=== PATIENT | female | born 1955 ===

== ENCOUNTER 2019-09-04 14:42 | Outpatient (CLI) | payer BC, SELFPAY ==
--- NOTE | 2019-09-04 14:49 | XR_ITS ---
WS: [id number] Chest 2 views, 09/04/2019 Clinical Data: COUGH Comparison: None. Findings: No nodules, masses or effusions are seen. The heart is normal. The pulmonary vascularity is not increased. No pneumonia or pneumothorax is seen. There are clips in right upper quadrant from a cholecystectomy. XR/XR chest 2V* [id number] Impression: Negative chest.
== END 2019-09-04 14:43 | disposition home or self-care (01) ==
PROVIDERS: PCP Family Medicine; Visit Provider Family Medicine
DX: R05 Cough (principal)
CPT/HCPCS: 71046

== ENCOUNTER → 2019-09-17 10:20 | Outpatient (BNVA) | payer BC, SELFPAY | PROVIDERS: PCP Family Medicine; Visit Provider Podiatrist Foot & Ankle Surgery | DX: M19.072 Primary osteoarthritis, left ankle and foot (principal); M19.071 Primary osteoarthritis, right ankle and foot | CPT/HCPCS: 73630 ==

== ENCOUNTER 2019-10-28 14:37 | Outpatient (CLI) | payer BC, SELFPAY | END 2019-10-28 14:38 | disposition home or self-care (01) | LOC: SPT 14:40 | PROVIDERS: PCP Family Medicine; Visit Provider Podiatrist Foot & Ankle Surgery | DX: Z46.89 Encounter for fitting and adjustment of other specified devices (principal); M19.071 Primary osteoarthritis, right ankle and foot; M19.072 Primary osteoarthritis, left ankle and foot | CPT/HCPCS: L3030 ==

== ENCOUNTER 2019-11-28 15:21 | Outpatient (CLI) | payer BC, SELFPAY ==
--- NOTE | 2019-11-28 15:49 | MM_ITS ---
WS: [id number] Bilateral screening digital mammogram, 11/28/2019 Clinical Data: SCREEN Comparison: 05/06/2018, 04/30/2017, 09/13/2012. Findings: The breast parenchymal pattern shows fat replacement. No spiculated masses or clustered calcification s are seen. There are no secondary signs of carcinoma. MM/[place] [id number] Impression: 1. Negative bilateral mammogram unchanged. 2. Recommend annual screening mammograms. BIRADS: 1-Negative FOLLOW UP: 1 Year Follow-up The CAD inventory checker was used.
== END 2019-11-28 15:22 | disposition home or self-care (01) ==
LOC: RADSHAW 15:23
PROVIDERS: PCP Family Medicine; Visit Provider Nurse Practitioner Family
DX: Z12.31 Encounter for screening mammogram for malignant neoplasm of breast (principal)
CPT/HCPCS: 77067

== ENCOUNTER → 2020-07-23 11:35 | Outpatient (BNVA) | payer OTHER, SELFPAY | PROVIDERS: PCP Family Medicine; Visit Provider Obstetrics & Gynecology | DX: D28.0 Benign neoplasm of vulva (principal) | CPT/HCPCS: 88305 ==

== ENCOUNTER → 2020-09-29 09:21 | Outpatient (BNVA) | payer MEDICARE, SELFPAY | PROVIDERS: PCP Family Medicine; Visit Provider Obstetrics & Gynecology | DX: N90.89 Other specified noninflammatory disorders of vulva and perineum (principal) | CPT/HCPCS: 87635 ==

== ENCOUNTER 2020-10-05 05:49 | Day surgery (SDC) | payer MEDICARE, SELFPAY ==
[2020-10-01 12:28] VITALS: BMI 25.5
--- NOTE | 2020-10-01 12:35 | ECG_ITS ---
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
--- NOTE | 2020-10-01 12:52 | ANES.PREANE2 ---
Pre-Anesthetic Assessment Pre-Anesthetic Assessment: Height/Weight: Height 1.63 m Weight 67.585 kg Preop Diagnosis: Papillary hidradenoma Proposed Procedure: Operation Date: 10/05/20 07:10 Proposed Procedures p excision of vulvar mass 43208 N90.89(Not Applicable) - Jeffery Jeffrey MD Familial anesthetic complications: Pulled IV out of her hand for one anesthetics, another time during her hysterectomy her IV blew intraop and she started coming to, and she has sever PONV Social: Social History: No alcohol and No tobacco Exam: Pre-Anes Outpt Exam: alert, oriented x 3, clear to auscultation bilaterally and regular rate & rhythm Airway: Cervical ROM: WNL MP: 4 Dentition: False and Other (implants) CV/HEM: CV/HEM: HTN Metabolic: Metabolic: DM and Hyperlipidemia Musc/skel: Musc/skel: OA/DJD Anesthetic Plan: ASA status: 2 Anesthesia: MAC Risk of > 500 ml blood loss (7ml/kg in children): No PFSH Anesthesia PFSH: Medical History Diabetes mellitus Hyperlipidemia Hypertension Surgical History History of dental surgery S/P laparoscopic assisted vaginal hysterectomy (LAVH) (~1990) LAVH/BSO for endometriosis. S/P laparoscopic cholecystectomy S/P tonsillectomy and adenoidectomy Family History Daughter Cancer Mother Diabetes Hypertension Hyperlipidemia Stroke Seizures Social History (Updated 10/01/20 @ 11:02 by Jeffery Jeffrey MD) Smoking and tobacco status: former smoker Quit status (tobacco): has quit using tobacco Year quit tobacco: 2004 Former quit date comment: Smoked for 32 years. Most 2 ppd. Alcohol intake: current Alcohol intake frequency: holidays/special occasions only Substance/Drug Use: never Household members: spouse Marital status: Current occupational status: retired Data Anesthesia Cardiac Studies: No Data to Display
[2020-10-01 13:34] LABS: Anion Gap 15.1 (5-19); Blood Urea Nitrogen 14 mg/dL (8-23); Calcium 8.8 mg/dL (8.5-10.5); Carbon Dioxide 21 mmol/L (22-29); Chloride 103 mmol/L (98-107); Glucose 285 mg/dL (65-115); Osmolality Calculated 291 mOsm/kg (285-295); Potassium 4.1 mmol/L (3.5-5.1); Sodium 135 mmol/L (136-145)
[2020-10-05 06:18] LABS: Glucose Point of Care 159 mg/dL (70-110)
[2020-10-05] MEDS: ketorolac 30 mg/mL INJ IVP (06:30)
[2020-10-05] MEDS: sodium chloride 0.9% 1,000 ML 30 ML IV (06:30)
--- NOTE | 2020-10-05 06:58 | W.PM.OPSUD ---
Surgery/Procedure H&P Update DATE OF PROCEDURE: October 05, 2020 DATE H&P PERFORMED: 10/01/20 H&P UPDATE INFORMATION: I have reviewed H&P completed within last 30 days, I have examined patient prior to procedure, No changes to prior documentation and H&P is in [facility] [place] on date indicated PREOP DIAGNOSIS: Papillary hidradenoma PLANNED PROCEDURE: Operation Date: 10/05/20 07:00 Proposed Procedures p excision of vulvar mass 16271 N90.89(Not Applicable) - Jeffery Jeffrey MD
--- NOTE | 2020-10-05 07:05 | P.ANESUD_ITS ---
Pre-Anesthetic Update Pre-Anesthetic Assessment: Date of Surgery/Procedure: 10/05/20 Preop Wendy gnosis: Papillary hidradenoma Proposed Procedure: Operation Date: 10/05/20 07:00 Proposed Procedures p excision of vulvar mass 70265 N90.89(Not Applicable) - Jeffery Jeffrey MD Any changes to Pre-Anesthetic Assessment?: No Last Intake: Intake Last Liquid Date 10/04/20 Last Liquid Time 18:00 Last Solid Date 10/04/20 Last Solid Time 18:00 Labs Last 48hrs: Laboratory Results - last 48 hr 10/05/20 06:13 POC Glucose 159 H Vitals: Pulse Rhythm 10/05/20 06:08 Pulse Strength 3+ Normal 10/05/20 06:08 Oxygen Delivery Me thod 10/05/20 06:08 Exam: Pre-Anes Outpt Exam: alert, oriented x 3, clear to auscultation bilater ally and regular rate & rhythm Cardiac Studies: No Data to Display
--- NOTE | 2020-10-05 07:30 | PC.NURSE ---
after performing vaginal betadine prep it was noted patient suffered a small tear at bottom of vaginal opening. Dr Wojciech morales.
--- NOTE | 2020-10-05 07:40 | PM.OP ---
Operative Report Date of procedure: October 05, 2020 Pre-op Diagnosis: Papillary hidradenoma Post-op Diagnosis: Papillary hidradenoma Procedure Done: Excision of benign vulvar mass-1.5 cm excised area, Intermediate (layered) closure. Specimens removed/disposition: Right labial mass Surgeon: Jeffery Jeffrey Collection Support Specialist: Virginie Anesthesia: General Estimated blood loss (mL): 10 IV fluids (mL): 500 Complications: None Findings: 1 cm diameter mass of the right labia at the 7 to 8 o'clock position Brief History: Patient is a 65-year-old female 2, para 2 who is postmenopausal. She presented to the office on 07/23/2020 with complaint of blood in her underwear. She had been evaluated by her PCP but was noted to be very painful at the time on exam with nothing found. Week she had been also noticing an odor and discharge. At my exam, she was found to have a firm 1 cm diameter rounded nodule of the right labia outside of the hymenal ring at a 7 o'clock position. There was central ulceration with papillary appearing tissue extending from within the ulcerated area. 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 Patient is now presenting for excision of of the mass. Procedure: Patient was taken to the operating room where general anesthesia was obtained. She had voided prior to coming to the operating room. She was prepped and draped in the usual sterile fashion dorsal supine position with legs in Tony style stirrups. Sequential compression boots have been placed prior to starting the case. Exam under anesthesia was performed. Patient had a 1 cm nodule within the right labia outside of the hymenal ring at the 7 to 8 o'clock position. There was central papillary growth from the mass. No other masses or abnormalities were noted of the labia or vagina. The area was infiltrated with 1% lidocaine with epinephrine. Using a knife, a 3 cm x 1.5 cm elliptical excision was made around the mass. This was taken down to the underlying fat tissue. The mass was then completely excised. Areas of bleeding were brought under control with electrocautery. A layered closure was performed. It was initially closed with 2-0 Vicryl suture in a mixture of simple running and locking fashion for control of areas of bleeding. A second layer was then closed over the top of that bringing the skin edges closer together. The skin was reapproximated using a simple running stitch of 3-0 Vicryl suture. Triple antibiotic was applied. Patient tolerated procedure well. Sponge and needle counts were correct. Drains: None Postoperative status: Patient was transferred to recovery room in satisfactory condition. Disposition: Discharged home. Follow-up appointment on 10/14/2020. Medications: Tramadol 50 mg, 1 to 2 tablets every 6 hours as needed for pain, #10, 0 refills May resume usual home medications.
[2020-10-05 07:44] VITALS: BP 137/66; PULSE 89; RESP 17; O2SAT 96
[2020-10-05 07:45] VITALS: BP 125/69; PULSE 89; RESP 14; O2SAT 96
[2020-10-05 07:50] VITALS: BP 129/66; PULSE 78; RESP 16; O2SAT 96
--- NOTE | 2020-10-05 07:50 | SUR.PHASEI ---
pt awake alert on ra taking ice chips.
[2020-10-05 07:55] VITALS: BP 130/67; PULSE 73; RESP 19; TEMP 36.3; O2SAT 98
[2020-10-05 08:02] VITALS: BP 138/56; PULSE 60; RESP 16; TEMP 36.5; O2SAT 99
[2020-10-05 08:18] VITALS: BP 144/66; PULSE 55; RESP 16; O2SAT 100
--- NOTE | 2020-10-05 13:41 | ANE.PACU2 ---
Inpatient post-anesthesia follow up: Airway intact: Yes Vital signs: Temperature 97.7 F Pulse Rate 55 Respiratory Rate 16 Blood Pressure 144/66 Pulse Oximetry 100 Oxygen Delivery Me thod Room Air Oxygen Flow Rate Fraction of Inspir ed Oxygen Hydration adequate: Yes Nausea and vomiting: No Pain level: 3 Mental status: Baseline
== END 2020-10-05 08:35 | disposition home or self-care (01) ==
PROVIDERS: PCP Family Medicine; Visit Provider Obstetrics & Gynecology
PROC: (CPT 11422; principal; 2020-10-05 07:00)
DX: D28.0 Benign neoplasm of vulva (principal); I10 Essential (primary) hypertension; E11.9 Type 2 diabetes mellitus without complications; E78.5 Hyperlipidemia, unspecified; M19.90 Unspecified osteoarthritis, unspecified site; Z87.891 Personal history of nicotine dependence
CPT/HCPCS: 11422; 12041; 36415; 36416; 80048; 82962; 88305; 93005; 96365; 96374; J0690; J1100; J1885; J2405; J2704; J2710; J3010; J3490; J7030

== ENCOUNTER → 2020-11-08 14:15 | Outpatient (BNVA) | payer MEDICARE, SELFPAY | PROVIDERS: PCP Family Medicine; Visit Provider Obstetrics & Gynecology | DX: N89.8 Other specified noninflammatory disorders of vagina (principal); B37.3 Candidiasis of vulva and vagina | CPT/HCPCS: 87210 ==

== ENCOUNTER 2021-04-18 10:49 | Outpatient (CLI) | payer MEDICARE, SELFPAY ==
--- NOTE | 2021-04-18 10:55 | MM_ITS ---
WS: [id number] BILATERAL SCREENING DIGITAL MAMMOGRAM WITH CAD HISTORY: SCREENING COMPARISON: 11/28/2019, 05/06/2018 Bilateral CC and MLO views submitted. Computer aided detection analyzed. Breast composition: There are scattered areas of fibroglandular density. No suspicious masses, microc alcifications or architectural distortion. Asymmetry in the anterior LEFT breast is stable over multi ple prior studies. Benign calcification RIGHT breast. MM/[place] [id number] IMPRESSION: BI-RADS: 2-Benign FOLLOW UP: 1 Year Follow-up
== END 2021-04-18 10:50 | disposition home or self-care (01) ==
LOC: RADSHAW 10:54
PROVIDERS: PCP Nurse Practitioner Family; Visit Provider Nurse Practitioner Family
DX: Z12.31 Encounter for screening mammogram for malignant neoplasm of breast (principal)
CPT/HCPCS: 77067

== ENCOUNTER 2021-09-01 11:14 | Observation (INO) | payer MEDICARE, SELFPAY ==
[2021-09-01] VITALS (8 sets, daily range): BP systolic 152–172; BP diastolic 67–85; PULSE 63–76; RESP 17–20; TEMP 36.4–36.7; O2SAT 94–100; BMI 26.5
--- NOTE | 2021-09-01 11:27 | XR_ITS ---
WS: [id number] Portable AP upright chest, 09/01/2021 Clinical Data: chest pain Comparison: PA and lateral chest, 09/04/2019 Findings: No nodules, masses or effusions are seen. The heart is normal. The pulmonary vascularity is not increased. No pneumonia or pneumothorax is seen. Monitor leads are on the chest wall. XR/XR chest 1V portable [id number] Impression: Negative chest.
--- NOTE | 2021-09-01 11:27 | ECG_ITS ---
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 Measurements Intervals [place] Rate: 71 P: 30 SD: 147 QRS: 88 QRSD: 95 T: 42 QT: 293 QTc: 318 Interpretive Statements SINUS RHYTHM LOW QRS VOLTAGE IN PRECORDIAL LEADS [QRS DEFLECTION < 1.0 mV IN CHEST LEADS] SEPTAL MYOCARDIAL INFARCTION , PROBABLY OLD [40+ ms Q WAVE IN V1/V2] Compared to ECG 10/01/2020 12:48:31 Low QRS voltage now present Myocardial infarct finding now present Short SD interval no longer present T-wave abnormality no longer present Electronically Signed On 09-02-2021 5:59:14 LEATHER COVERER by Gabriella Tyson M.D. [id number]
[2021-09-01] MEDS: aspirin 325 mg Tablet PO (11:31)
--- NOTE | 2021-09-01 11:40 | ED_ITS ---
HPI - General Adult General: Chief complaint: Chest Pain Stated complaint: cp Time Seen by Provider: 09/01/21 11:27 History of Present Illness: CC: Chest Pain HPI: This is a [65]yo patient hx of HTN, DM presenting to the ED w/ acute onset intermittent substernal chest pain x 3 days. Pain is a very typical prior presentation of cardiac chest pain. Has shortness of breath worse with exertion for the last 3 days. Pain is not tearing in nature and does not radiate to the back. Endorse nausea but has no associated with vomiting or decreased PO intake. Denies any recent sympathomimetic drug use. Patient denies any cough. Denies palpitations, syncope symptoms. Pain not positional. Norecent immobility, surgery, unilateral leg swelling, or prior PE. Patient denies any orthopnea, p aroxysmal nocturnal dyspnea, weight gain, or increased leg swellings. Onset: 3 days ago Duration: ongoing for the last 3 days Location: home Severity: moderate Associated symptoms: Reports chest pain and dyspnea; Deny nausea, rash, palpitations or vomiting Review of Systems Const: Denies: fever(s) or chills Eyes: Denies: change in vision ENMT: Denies: mouth pain Card: Reports: chest pain; Denies: palpitations Resp: Reports: dyspnea; Denies: non-productive cough GI: Denies: abdominal pain, nausea, vomiting or diarrhea : Denies: dysuria Musc: Denies: extremity pain Skin/Breast: Denies: rash or new lesions Neuro: Denies: weakness in extremities Psych: Reports: other (Normal mood) Deng/Lymph: Denies: easy bruising [facility] ED PFSH: Medical History Diabetes mellitus Hyperlipidemia Hypertension 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 Path: Hidradenoma papilliferum. Performed by Dr. Jeffrey at [facility] in [place], [place]. History of dental surgery S/P laparoscopic assisted vaginal hysterectomy (LAVH) (~1990) LAVH/BSO for endometriosis. S/P laparoscopic cholecystectomy S/P tonsillectomy and adenoidectomy Family History Daughter Cancer Mother Diabetes Hypertension Hyperlipidemia Stroke Seizures Social History Smoking and tobacco status: former smoker Quit status (tobacco): has quit using tobacco Year quit tobacco: 2004 Former quit date comment: Smoked for 32 years. Most 2 ppd. Alcohol intake: current Alcohol intake frequency: holidays/special occasions only Household members: spouse Marital status: Current occupational status: retired Physical Exam Const: COMMON NORMALS: alert HENMT: COMMON NORMALS: atraumatic HEAD & SCALP: atraumatic MOUTH: moist mucous membranes not abnormal Eye: COMMON NORMALS: EOMs intact bilaterally and conjunctivae normal CONJUNCTIVA: Yes conjunctivae normal Neck/C-Spine: COMMON NORMALS: full ROM and supple Resp: COMMON NORMALS: normal respiratory effort and clear to auscultation bilaterally AUSCULTATION: clear to auscultation bilaterally Cardio: COMMON NORMALS: regular rate RATE: regular rate OTHER: 2+ radial pulses b/l GI: COMMON NORMALS: Soft to palpation and non-tender PALPATION: Yes Soft to palpation Extremity: COMMON NORMALS: full ROM Neuro: SENSORIUM/ORIENTATION: Yes alert MOTOR EXAM: No Abnormal motor strength present and Other motor observations present (no focal motor deficits) Psych: COMMON NORMALS: speech normal SPEECH: Yes normal speech MOOD & AFFECT: Yes euthymic mood Course Vital Signs: Vital signs: Vital Signs Temperature 97.5 F L 09/01/21 11:19 Pulse Rate 71 09/01/21 11:19 Respiratory Rate 20 H 09/01/21 11:54 Blood Pressure 157/85 09/01/21 11:19 Pulse Oximetry 100 09/01/21 11:54 MDM - General Adult Medical Decision Making [65]yo patient w/ hx of HTN, DM presenting to the ED With acute substernal chest pain X 4 days with hx of similar prior pain. Currently 5/10 chest pain. Given History And Exam today I have moderate to high suspicion for ACS/UA/NSTEMI. Today, I have NO suspicion for pneumothorax, pneumonia, pulmonary embolus, tamponade, aortic dissection or other emergent problem as a cause for this presentation. ECG did not show any signs of acute STEMI. Workup: ECG x2, CXR, CBC, BMP, Troponin x 2 Intervention: ASA 325mg, SL nitroglycerin Findings: ECG: No overt evidence of STEMI, no hyperacute T waves, localizable STD or T wave inversions. No evidence of Brugada?s sign, delta wave, epsilon wave, significantly prolonged QTc, or malignant arrhythmia. No Q waves. Other Labs unremarkable for emergent problems. CXR: Without PTX, PNA, or widened mediastinum Dimer wnl [12:30pm] On reassessment, the patient is currently chest pain free. S/p aspirin 325mg. Pain improved with nitroglycerin. Heart score greater than 4, patient admitted to hospital for chest pain work-up. Disposition: Inpatient admission. Lab Data : 09/01/21 11:40 09/01/21 11:40 Radiology Impressions Chest X-Ray 09/01/21 11:27 Impression: Negative chest. Laboratory Results WBC 8.0 10^3/uL (4.0-10.0) 09/01/21 11:40 RBC 5.08 10^6/uL (4.1-5.3) 09/01/21 11:40 Hgb 14.2 g/dL (11.5-15.3) 09/01/21 11:40 Hct 42.5 % (37.0-47.0) 09/01/21 11:40 MCV 83.7 fl (81-99) 09/01/21 11:40 MCH 28.0 pg (28.0-34.0) 09/01/21 11:40 MCHC 33.4 g/dL (30.0-36.0) 09/01/21 11:40 RDW 12.4 % (12.1-15.1) 09/01/21 11:40 Plt Count 278 10^3/cmm (130-400) 09/01/21 11:40 MPV 9.9 fL (7.4-10.4) 09/01/21 11:40 Neut % (Auto) 63.7 % 09/01/21 11:40 Lymph % (Auto) 24.0 % 09/01/21 11:40 [place] % (Auto) 8.6 % 09/01/21 11:40 Eos % (Auto) 1.9 % 09/01/21 11:40 Baso % (Auto) 0.8 % 09/01/21 11:40 Neut # (Auto) 5.07 10^3/uL (1.8-7.7) 09/01/21 11:40 Lymph # (Auto) 1.9 10^3/uL (0.8-4.8) 09/01/21 11:40 [place] # (Auto) 0.7 10^3/uL (0.2-0.9) 09/01/21 11:40 Eos # (Auto) 0.2 10^3/uL (0.0-0.8) 09/01/21 11:40 Baso # (Auto) 0.1 10^3/uL (0.0-0.1) 09/01/21 11:40 Nucleated RBC % (auto) 0 % 09/01/21 11:40 Nucleated RBCs # 0.0 /100WBC 09/01/21 11:40 D-Dimer <= 0.27 ug/mIFEU (0-0.59) 09/01/21 13:45 Sodium 138 mmol/L (136-145) 09/01/21 11:40 Potassium 4.4 mmol/L (3.5-5.1) 09/01/21 11:40 Chloride 104 mmol/L (98-107) 09/01/21 11:40 Carbon Dioxide 22 mmol/L (22-29) 09/01/21 11:40 Anion Gap 16.4 (5-19) 09/01/21 11:40 BUN 11 mg/dL (8-23) 09/01/21 11:40 Creatinine 0.7 mg/dL (0.5-0.9) 09/01/21 11:40 GFR Calculation 84.0 mL/min (90-130) L 09/01/21 11:40 Glucose 134 mg/dL (65-115) H 09/01/21 11:40 Calculated Osmolality 287 mOsm/kg (285-295) 09/01/21 11:40 Calcium 9.7 mg/dL (8.5-10.5) 09/01/21 11:40 Troponin T Baseline 6 ng/L (0-10) 09/01/21 11:40 Troponin T 120 Minute 6.26 ng/L (0-10) 09/01/21 13:45 Delta Troponin T 0.26 ABS# (0-10) 09/01/21 13:45 Imaging Data Other Imaging: Radiologist's impression: Launch?Image Rudder [facility] [address] [place] [address] XRay Report Signed Patient: Rahel Espinoza Unit #: [id number] : 1955 Age/Sex: 65 / F ADM Date: 09/01/21 Loc: ER Room/Bed: Attending Dr: Ordering Provider/Ordering MD: Misti Llamas MD Date of Service: 09/01/21 Procedure(s): XR chest 1V portable [id number] Accession Number(s): [id number] Report Number: [id number] WS: [id number] Portable AP upright chest, 09/01/2021 Clinical Data: chest pain Comparison: PA and lateral chest, 09/04/2019 Findings: No nodules, masses or effusions are seen. The heart is normal. The pulmonary vascularity is not increased. No pneumonia or pneumothorax is seen. Monitor leads are on the chest wall. XR/XR chest 1V portable [id number] Impression: Negative chest. ? Dictated By: Latonia Helton MD Signed By: Latonia Helton MD Signed Date/Time: 09/01/211154 DD/ 54 Discharge Plan Discharge Patient Disposition: Admitted As Inpatient Clinical Impression: Chest pain Condition: Stable Coding Level of Care Code ED Automotive Product Engineer for Chg Fwd Exam Comprehensive
[2021-09-01 11:51] LABS: Basophils # 0.1 10^3/uL (0.0-0.1); Basophils % 0.8 %; Eosinophils # 0.2 10^3/uL (0.0-0.8); Eosinophils % 1.9 %; Hematocrit 42.5 % (37.0-47.0); Hemoglobin 14.2 g/dL (11.5-15.3); Lymphocytes # 1.9 10^3/uL (0.8-4.8); Mean Corpuscular HGB Conc 33.4 g/dL (30.0-36.0); Mean Corpuscular Volume 83.7 fl (81-99); Mean Platelet Volume 9.9 fL (7.4-10.4); Monocytes # 0.7 10^3/uL (0.2-0.9); Monocytes % 8.6 %; Neutrophils # 5.07 10^3/uL (1.8-7.7); Neutrophils % 63.7 %; Nucleated Red Blood Cells % 0 %; Platelet Count 278 10^3/cmm (130-400); Red Blood Count 5.08 10^6/uL (4.1-5.3); Red Cell Distribution Width 12.4 % (12.1-15.1)
[2021-09-01] MEDS: morphine 4 mg/mL SDV 1 mL IVP (11:54)
[2021-09-01 12:11] LABS: Troponin(5th) Baseline 6 ng/L (0-10)
[2021-09-01 12:12] LABS: Anion Gap 16.4 (5-19); Blood Urea Nitrogen 11 mg/dL (8-23); Calcium 9.7 mg/dL (8.5-10.5); Carbon Dioxide 22 mmol/L (22-29); Chloride 104 mmol/L (98-107); Glucose 134 mg/dL (65-115); Osmolality Calculated 287 mOsm/kg (285-295); Potassium 4.4 mmol/L (3.5-5.1); Sodium 138 mmol/L (136-145)
--- NOTE | 2021-09-01 12:17 | PC.PHAR ---
pt states she takes care of her own medications-pt states she is not taking montelukast 10mg rx filled 08/24/21 90d/s-notes are made in the pharmacy comments
--- NOTE | 2021-09-01 13:27 | ECG_ITS ---
[facility] Test Date: 2021-09-01 Pat Name: Rahel Espinoza Department: Room: Gender: Female Gut Dropper: : 1955 Requested By: Misti Llamas Order Number: [id number] Reading MD: Gabriella Tyson M.D. Measurements Intervals [place] Rate: 68 P: 42 UT: 140 QRS: 84 QRSD: 92 T: 90 QT: 404 QTc: 432 Interpretive Statements SINUS RHYTHM SEPTAL MYOCARDIAL INFARCTION , PROBABLY OLD [40+ ms Q WAVE IN V1/V2] Compared to ECG 09/01/2021 11:28:31 No significant changes Electronically Signed On 09-02-2021 6:06:25 MANAGEMENT SERVICES TECHNICIAN by Gabriella Tyson M.D. [id number]
[2021-09-01 14:10] LABS: D Dimer <= 0.27 ug/mIFEU (0-0.59)
--- NOTE | 2021-09-01 14:25 | CT_ITS ---
WS: [id number] CTA CHEST, ABDOMEN AND PELVIS. HISTORY: Left-sided chest pain with difficulty breathing. TECHNIQUE: CT angiogram is performed through the chest, abdomen and pelvis. Sagittal and coronal ref ormats have been submitted. MIP imaging also reviewed. All CT scans at [facility] use at leas t one of these dose optimization techniques: automated exposure control; mA and/or kV adjustment per patient size (includes targeted exams where dose is matched to clinical indication); or iterative rec onstruction. Contrast: Omnipaque 350; 95 cc IV. DLP: 1523.7 mGy.cm COMPARISON: None. Normal size thoracic aorta. No dissection or aneurysm. There is very mild atherosclerotic plaque and intimal thickening. Normal size pulmonary artery with no emboli. Heart size is normal with slight enl argement the LEFT heart chambers. There is minimal calcified plaque in the LEFT circumflex coronary a rtery. No pneumothorax or pleural effusion. Lungs are clear. There is mild diffuse esophageal thicken ing greatest in the mid and lower esophagus. Normal appearance of the great vessels as they arise fro m the aorta. Abdominal aorta is normal course and caliber. No dissection or aneurysm. Internal and external iliac arteries are normal caliber. Good contrast opacification of the celiac axis and SMA. Only partial opa cification of the SMV due to the phase of contrast injection. Normal renal arteries. Hepatic steatosis. Normal portal vein. Prior cholecystectomy. Normal size spleen and adrenal glands. Normal pancreas. No renal mass or obstruction. No ascites or free air. Diffuse constipation. Greatest retained fecal material in the cecum and dista l colon. Numerous diverticula. Normal appendix. Facet joint arthritis in the lower lumbar spine. CT/CT angio chest abdomen pelvis IMPRESSION: 1. No thoracic or abdominal aortic aneurysm or dissection. 2. Very minimal atherosclerotic disease within the thoracic and abdominal aort as. 3. No pneumothorax or pleural effusion. 4. No pulmonary embolism. 5. Mild mid to lower circumferential thickening of the esophagus. Correlate fo r gastroesophageal reflux disease and esophagitis. 6. Diffuse moderate constipation with sigmoid diverticulosis. No acute diverti culitis. 7. Hepatic steatosis. 8. Prior cholecystectomy and hysterectomy.
[2021-09-01 14:33] LABS: Troponin 5 2HR 6.26 ng/L (0-10)
--- NOTE | 2021-09-01 14:45 | PM.HP ---
Providers/Chief Complaint Primary Care Provider: Fabby Miguel Chief Complaint: cp History of Present Illness Rahel Espinoza is a 65 year old female with a past medical history of noninsulin-dependent type 2 diabetes mellitus, hypertension, who presents to [facility] due to severe substernal chest pain radiating to the back. Patient tells me that for the last few days, she has noticed severe chest pain, radiating to the back. It is almost like someone is punching her in the sternum, and is going straight to her back, and she has severe tearing back pain. Pain does not improve with sitting up, does not improve with laying down. She tells me that over the last few days pain has become much more severe, much more prolonged. Some associate shortness of breath. No diaphoresis. No lightheadedness. No dizziness. No nausea. No vomiting. Denies any heavy lifting. Denies any back spasms. Does have some left shoulder pain. Denies any cardiovascular history. No history of stress testing. No history of CVA. Does have a history of hypertension. In the emergency room her first troponin was 6, D-dimer 0.27, EKG no acute ST-T wave changes. Given her severe substernal chest pain rating to the back, I will order a CT angiogram of the chest to evaluate for possible aortic dissection. So far she is received aspirin, morphine Review of Systems Const: Denies: fever(s), chills, fatigue or malaise Eyes: Denies: change in vision or blurry vision ENMT: Denies: nasal congestion Resp: Denies: dyspnea, productive cough, non-productive cough or wheezing GI: Denies: abdominal pain, nausea, vomiting, hematemesis, diarrhea, constipation, hematochezia or melena : Denies: flank pain, dysuria or urinary frequency Musc: Reports: back pain Skin/Breast: Denies: rash Neuro: Denies: headache(s), dizziness or vertigo Psych: Denies: anxiety Endo: Denies: polyuria or polydipsia Medications/Allergies Home Medications Medication Instructions Recorded Confirmed Last Taken Type lisinopril 10 mg tablet 10 mg PO BEDTIME tab 10/01/20 09/01/21 08/31/21 History trazodone 50 mg tablet 100 mg PO BEDTIME tab 10/01/20 09/01/21 08/31/21 History aspirin 325 mg tablet 325 mg PO BEDTIME 09/01/21 09/01/21 08/31/21 History azelastine 137 mcg (0.1 %) nasal 1 spray INTRANASAL BID 09/01/21 09/01/21 Unknown History spray aerosol epinephrine 0.3 mg/0.3 mL See Rx Instructions .ROUTE .COMPLEX 09/01/21 09/01/21 Unknown History injection, auto-injector fluticasone propionate 50 1 spray INTRANASAL BID 09/01/21 09/01/21 Unknown History mcg/actuation nasal spray,suspension levocetirizine 5 mg tablet 5 mg PO BEDTIME 09/01/21 09/01/21 08/31/21 History multivitamin with minerals 2 tab PO DAILY 09/01/21 09/01/21 Unknown History (Hair,Skin and Nails) semaglutide 7 mg tablet (Rybelsus) 7 mg PO QAM 09/01/21 09/01/21 09/01/21 History Allergies Allergy/AdvReac Type Severity Reaction Status Date / Time Penicillins Allergy Unknown unknown Verified 09/01/21 12:16 Fpumzww-ENS-FeY Reductase Allergy Unknown Unknown Verified 09/01/21 12:16 Inhibitor [Ogedmti-Drp-Xlu Reductase Inhibitor] PFSH Acute PFSH: Medical History Diabetes mellitus Hyperlipidemia Hypertension 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 Path: Hidradenoma papilliferum. Performed by Dr. Jeffrey at [facility] in [place], [place]. History of dental surgery S/P laparoscopic assisted vaginal hysterectomy (LAVH) (~1990) LAVH/BSO for endometriosis. S/P laparoscopic cholecystectomy S/P tonsillectomy and adenoidectomy Family History Daughter Cancer Mother Diabetes Hypertension Hyperlipidemia Stroke Seizures Social History Smoking and tobacco status: former smoker Quit status (tobacco): has quit using tobacco Year quit tobacco: 2004 Former quit date comment: Smoked for 32 years. Most 2 ppd. Alcohol intake: current Alcohol intake frequency: holidays/special occasions only Household members: spouse Marital status: Current occupational status: retired Vitals/I&O/Wt Last Vital Signs Temp 97.5 F L 09/01/21 11:19 Pulse 71 09/01/21 11:19 Resp 20 H 09/01/21 11:54 BP 157/85 09/01/21 11:19 Pulse Ox 100 09/01/21 11:54 Weight last 48 hrs Weight 68.039 kg Physical Exam Const: COMMON NORMALS: no acute distress and patient oriented x3 GENERAL APPEARANCE: cooperative, well kempt and well developed HENMT: COMMON NORMALS: normocephalic and Normal external nose present HEAD & SCALP: normocephalic Eye: COMMON NORMALS: Equal, round and reactive pupils present, EOMs intact bilaterally and conjunctivae normal PUPIL: Yes Equal, round and reactive pupils present Neck/C-Spine: COMMON NORMALS: full ROM, no lymphadenopathy, no meningeal signs, Thyroid normal and No carotid bruits THYROID: Thyroid normal Lymph: LYMPHATIC: no lymphadenopathy noted Chest: COMMONS NORMALS: normal inspection of the chest Resp: COMMON NORMALS: normal respiratory effort, No retractions, No use of accessory muscles and clear to auscultation bilaterally AUSCULTATION: clear to auscultation bilaterally Cardio: COMMON NORMALS: no JVD, regular rate, regular rhythm, S1 normal heart sound present, S2 normal heart sound present, No murmurs present (Cardio) and Peripheral pulses 2+ throughout RATE: regular rate RHYTHM: regular rhythm HEART SOUNDS: S1 normal heart sound present and S2 normal heart sound present PERIPHERAL PULSES: Peripheral pulses 2+ throughout GI: COMMON NORMALS: Normal to inspection, nondistended, normoactive bowel sounds present, Soft to palpation, non-tender and No hepatosplenomegaly present PALPATION: Yes Soft to palpation and Yes No hepatosplenomegaly present Back/Pelvis: COMMON NORMALS: no CVA tenderness THORACIC SPINE/UPPER BACK: Yes normal to inspection, Yes thoracic ROM normal, No pain with ROM and Yes paraspinal muscle tenderness Extremity: COMMON NORMALS: normal to inspection, full ROM, capillary refill normal, no calf tenderness and no pedal edema Neuro: COMMON NORMALS: patient oriented x3, CN's II-XII intact bilaterally, moves all extremities, no focal motor deficits and no sensory deficits noted Psych: COMMON NORMALS: mental status grossly normal, Normal thought process present, cooperative and speech normal APPEARANCE: Yes well kempt SPEECH: Yes normal speech THOUGHT PROCESS: Normal thought process present Skin: COMMON NORMALS: turgor normal and no jaundice GENERAL SKIN EXAM: turgor normal Data : 09/01/21 11:40 09/01/21 11:40 A&P Assessment and plan (1) Chest pain: Status: Acute (2) Hypertension: Status: Acute (3) Diabetes mellitus: Status: Acute (4) Hyperlipidemia: Status: Acute Plan Chest pain -Substernal chest pain, radiating to the back, -Has a history of hypertension, diabetes - plan -CT angiogram of the chest has been ordered to evaluate for possible aortic dissection, if positive will need to transferred for higher level care, need to start on beta-jazlyn -For now she continues to have chest pain -If CT angiogram negative -We will start on nitroglycerin drip -Coreg 3.125 twice daily -Aspirin, statin -Cardiac echocardiogram -Current n.p.o. 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
[2021-09-01 14:51] LABS: Troponin 5 2HR Delta 0.26 ABS# (0-10)
[2021-09-01] MEDS: iohexol 350 mg/mL 100 mL Btl IV (14:58)
--- NOTE | 2021-09-01 15:57 | PC.NURSE ---
[facility]
--- NOTE | 2021-09-01 16:04 | USCV_ITS ---
Rahel Espinoza Age: 65 Gender: F : 1955 Exam Date: 09/01/2021 16:30 Ordering Phys: Kirit Alcantar MD Technologist: MATTHEW Exam Location: [facility] Indication: chest pain BP: 124 / 68 HR: 61 Rhythm: Sinus Technical Quality: Adequate MEASUREMENTS (Male / Female) Normal Values 2D ECHO LV Diastolic Diameter PLAX 3.8 cm 4.2 - 5.9 / 3.9 - 5.3 cm LV Systolic Diameter PLAX 2.5 cm IVS Diastolic Thickness 1.1 cm 0.6 - 1.0 / 0.6 - 0.9 cm IVS Systolic Thickness 1.5 cm LVPW Diastolic Thickness 1.5 cm 0.6 - 1.0 / 0.6 - 0.9 cm LVPW Systolic Thickness 1.8 cm LVOT Diameter 2.0 cm LV Ejection Fraction 2D Teich 62.4 % LV Ejection Fraction MOD 2C 69.6 % LV Ejection Fraction 2C AL 69.3 % LA Diameter 3.3 cm LA Width 3.4 cm LA Height 4.3 cm RA Width 2.9 cm RA Height 4.1 cm Aorta at Sinotubular Diameter 2.5 cm M-MODE Aortic Annulus Diameter 3.1 cm LA Ao Ratio MM 1.1 MV E Point Septal Separation 0.5 cm DOPPLER AV Peak Velocity 99.0 cm/s LVOT Peak Velocity 74.0 cm/s AV Area Cont Eq vti 2.5 cm squared AV Area Cont Eq pk 2.3 cm squared MV Area PHT 4.8 cm squared Mitral E to A Ratio 0.9 MV E' Velocity 74.0 cm/s Mitral E to LV E' Septal Ratio 10.5 TR Peak Velocity 293.4 cm/s TR Peak Gradient 34.4 mmHg TR Mean Velocity 226.1 cm/s TR Mean Gradient 21.9 mmHg TR Velocity Time Integral 79.1 cm Right Atrial Pressure 3.0 mmHg Pulmonary Artery Systolic Pressu 37.4 mmHg RV Acceleration Time 0.1 s RV Ejection Time 0.4 s RV AcT/ET 0.4 FINDINGS Left Ventricle Normal left ventricular size. LV systolic function is normal with EF of 55-60%. No regional wall motion abnormalities are seen. Grade 1 diastolic dysfunction. Right Ventricle The right ventricle is normal in size and function. Right Atrium The right atrium is normal in size. Left Atrium The left atrium is normal in size. Mitral Valve Structurally normal mitral valve without significant stenosis or prolapse. There is trace mitral regurgitation. Aortic Valve Grossly normal. No significant stenosis or aortic regurgitation seen. Tricuspid Valve Structurally normal tricuspid valve without significant stenosis. Trace tricuspid regurgitation. Insufficient TR jet to calculate RVSP. Pulmonic Valve Not well-visualized Pericardium Normal pericardium without effusion. Aorta Normal ascending aorta dimension. CONCLUSIONS LV systolic function is normal with EF 55 to 60%. Grade 1 diastolic dysfunction. Trace mitral regurgitation. Trace tricuspid regurgitation. No comparison studies are available. Raj Hernandez MD (Electronically Signed) Final Date: 02 September 2021 11:35 S
--- NOTE | 2021-09-01 16:04 | ECG_ITS ---
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 Interpretive Statements NAME OF STUDY: LEXISCAN SESTAMIBI STRESS TEST INDICATION: [Chest Pain, ] Procedure: At the baseline, the blood pressure was 115/62 mmHg with a heart rate of 68 bpm. The electrocardiogram showed normal sinus rhythm, normal axis with normal ST and T's. The Lexiscan was infused over a period of 20 seconds. A total of 0.4 mg of Lexiscan was infused. The stress phase was continued for a total of 5 minutes. Heart rate was at the end of stress phase was 89 bpm and a blood pressure of 118/69 mmHg. The EKG at the peak infusion revealed since normal sinus rhythm with no significant ST-T wave changes. Sestamibi was injected 20 seconds after the Lexiscan infusion. Blood pressure at the end of recovery phase was 106 /62 mmHg with a heart rate of 89 bpm. Conclusion: 1. Normal EKG response to Lexiscan infusion 2. No Lexiscan induced chest pain or cardiac arrhythmia. 3. Normal blood pressure and heart rate response. 4. Sestamibi/sestamibi perfusion scan pending; see separate report. Electronically Signed On 10-01-2021 12:46:47 CDT by Raj Hernandez M.D. [id number]
[2021-09-01 16:21] LABS: Erythrocyte Sedimentation Rate 5 mm/hr (0-15)
[2021-09-01 16:31] LABS: Chol HDL Ratio 4.34 mg/dL (0.0-4.40); Cholesterol 230 mg/dL (0-200); HDL Cholesterol 53 mg/dL (60-100); LDL Cholesterol Calculated 129 mg/dL (50-129); LDL HDL Ratio 2.43 RATIO (0.00-3.22); NT Pro B Type Natriuretic Pept 127 pg/mL (0-125); Triglycerides 241 mg/dL (0-150)
[2021-09-01 16:36] LABS: Glucose Point of Care 75 mg/dL (70-110)
[2021-09-01 16:50] LABS: Amphetamines Screen Urine Negative (Negative); Barbiturates Screen Urine Negative (Negative); Benzodiazepines Screen Urine Negative (Negative); Cocaine Screen Urine Negative (Negative); Opiate Screen Urine Positive (Negative); PCP Screen Urine Negative (Negative); THC Screen Urine Negative (Negative)
--- NOTE | 2021-09-01 17:27 | ECG_ITS ---
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 Measurements Intervals Moodus Rate: 67 P: -4 [place]: 133 QRS: 38 QRSD: 109 T: 5 QT: 424 QTc: 449 Interpretive Statements SINUS RHYTHM NONSPECIFIC ST & T-WAVE ABNORMALITY Compared to ECG 09/01/2021 13:26:01 T-wave abnormality now present Myocardial infarct finding no longer present Electronically Signed On 09-02-2021 6:05:03 YOUTH SPECIALIST by Gabriella Tyson M.D. [id number]
[2021-09-01] MEDS: carvedilol 3.125 mg Tablet PO (17:30)
[2021-09-01] MEDS: fluticasone nasal spray 16gm Btl 1 SPRAY INTRANASAL (17:30)
[2021-09-01 17:31] LABS: Estmated Average Glucose 177; Hemoglobin A1C 7.8 % (4.0-6.0)
[2021-09-01 18:08] LABS: Troponin 5 6HR 6.96 ng/L (0-10)
[2021-09-01 18:18] LABS: Thyroid Stimulating Hormone 1.22 uIU/mL (0.27-4.20)
[2021-09-01 18:28] LABS: Troponin 5 6HR Delta 0.96 ng/L (0-12)
--- NOTE | 2021-09-01 18:55 | PC.NURSE ---
Report to Breonna Chowdhury LPN at this time.
[2021-09-01] MEDS: enoxaparin 40 mg/0.4 mL Syringe SUBCUT (20:08)
[2021-09-01] MEDS: trazodone 50 mg Tablet 100 MG PO (20:09)
[2021-09-01] MEDS: lisinopril 10 mg Tablet PO (20:09)
[2021-09-01 21:15] LABS: Glucose Point of Care 130 mg/dL (70-110)
[2021-09-02] VITALS: BP 152/74; PULSE 70; RESP 17; O2SAT 92
[2021-09-02 02:23] LABS: Alanine Aminotransferase 17 U/L (0-33); Albumin Level 3.8 g/dL (3.5-5.2); Alkaline Phosphatase 78 IU/L (35-105); Anion Gap 13.3 (5-19); Aspartate Amino Transferase 13 U/L (0-32); Blood Urea Nitrogen 11 mg/dL (8-23); Calcium 9.6 mg/dL (8.5-10.5); Carbon Dioxide 24 mmol/L (22-29); Chloride 105 mmol/L (98-107); Globulin 2.2 g/dL (1.3-4.6); Glucose 173 mg/dL (65-115); Magnesium 2.1 mg/dL (1.7-2.3); Osmolality Calculated 290 mOsm/kg (285-295); Phosphorus 3.7 mg/dL (2.5-4.5); Potassium 4.3 mmol/L (3.5-5.1); Sodium 138 mmol/L (136-145); Total Bilirubin 0.2 mg/dL (0.15-1.2)
[2021-09-02 04:00] VITALS: BP 125/79; PULSE 67; RESP 17; TEMP 36.6; O2SAT 98
[2021-09-02 06:28] LABS: Glucose Point of Care 130 mg/dL (70-110)
[2021-09-02] MEDS: regadenoson 0.4 Mg/5 ml Syringe IVP (07:34)
[2021-09-02] MEDS: ondansetron 2 mg/ML SDV 2 mL 4 MG IVP (07:40)
[2021-09-02 07:47] VITALS: BP 132/73; PULSE 89
[2021-09-02 08:00] VITALS: BP 113/65; PULSE 80; RESP 22; TEMP 36.7; O2SAT 92
--- NOTE | 2021-09-02 08:45 | PC.NURSE ---
Patient returned to room at this time.
--- NOTE | 2021-09-02 09:57 | PC.CHAP ---
Pastoral Care Encounter/Spiritual Assessment Type of Contact [] Declined station supervisor visit [] Patient/Family/Request visit [] Outpatient visit [] Follow-up visit [] Physician referral [] Code/Alert [x] Routine visit [] Staff referral [] Actively dying [x] Patient sleeping [] Family support [] [] Out of room [] Palliative care [] [] Receiving care in room [] Pre-surgical visit [] Trauma [] Long length of stay [] ICU visit [] Other: Relational/Emotional Strength [] Patient feels connected with others/family/visitors/staff [] Distress [] Loneliness/isolation [] Abandonment Spirituality of Patient [] Person of Jeanie [] Attends Zoroastrianism of their Jeanie [] Believes in Prayer [] Reads Bible or Restoration materials [] There are Spiritual issues to be addressed Hand Flesher Interventions [] Prayer [] Active listening [] Non-anxious presence [] Spiritual/emotional support [] Crisis/trauma care [] Spiritual counseling [] Bereavement support [] Provided bereavement packet [] Provided Bible/devotional materials [] Provided toy/stuffed animal, coloring book to patient or family member [] Provided Communion [] Anointing/[place] [] Salvation [] Completed spiritual assessment [] Other: Impact on Illness or Injury [] Angry [] Fearful [] Anxious [] Often cries [] Exhaustion [] Unable to work [] Unable to attend gnosticist [] Unable to walk/stand [] Unable to read [] Unable to drive [] Unable to eat/drink [] Unable to sleep [] Unable to be with family [] Patient intubated [] Other: Summary Time spent with patient
[2021-09-02] MEDS: baclofen 10 mg Tablet PO (10:34)
[2021-09-02] MEDS: fluticasone nasal spray 16gm Btl 1 SPRAY INTRANASAL (10:34)
[2021-09-02] MEDS: carvedilol 3.125 mg Tablet PO (10:34)
[2021-09-02] MEDS: aspirin 325 mg Tablet PO (10:34)
[2021-09-02] MEDS: pantoprazole DR 40 mg Tablet PO (10:34)
[2021-09-02 11:13] VITALS: BP 166/80; PULSE 74; RESP 20; TEMP 36.6; O2SAT 98
--- NOTE | 2021-09-02 11:30 | PM.DCS ---
Discharge Providers Date of Admission: 09/01/21 14:15 Date of Discharge: September 02, 2021 Attending Provider at Admission: Kirit Alcantra MD Attending Provider at Discharge: Kirit Alcantar MD Primary Care Provider: Fabby Miguel Diagnoses at Discharge Discharge Diagnosis (1) Chest pain: Status: Acute (2) Hypertension: Status: Acute (3) Diabetes mellitus: Status: Acute (4) Hyperlipidemia: Status: Acute Reason for Visit Reason for Visit: cp Hospital Course Hospital Course This is a 65-year-old female with a past medical history of hypertension, diabetes, hyperlipidemia who presents [facility] for chest pain For her chest pain, no significant delta troponin, no acute ST-T wave changes, CT of the chest was negative for aortic dissection or pulmonary emboli, underwent cardiac stress testing which was low probability of obstructive CAD. Discharged on blood pressure control lisinopril 10 twice daily, Coreg 3.125 twice daily. Follow-up with primary provider in 1 week. If she were to have recurrent chest pain go to the emergency room Physical Exam Const: COMMON NORMALS: no acute distress and patient oriented x3 Resp: COMMON NORMALS: normal respiratory effort, No retractions, No use of accessory muscles and clear to auscultation bilaterally AUSCULTATION: clear to auscultation bilaterally Cardio: COMMON NORMALS: regular rate, regular rhythm, S1 normal heart sound present and S2 normal heart sound present RATE: regular rate RHYTHM: regular rhythm HEART SOUNDS: S1 normal heart sound present and S2 normal heart sound present GI: COMMON NORMALS: Normal to inspection, nondistended, normoactive bowel sounds present, Soft to palpation and non-tender PALPATION: Yes Soft to palpation Extremity: COMMON NORMALS: no pedal edema Neuro: COMMON NORMALS: patient oriented x3 Psych: COMMON NORMALS: mental status grossly normal Discharge Data Studies Completed and Pending Completed Studies During Hospitalization Category Date Time Status CTA chest abdomen pelvis [CT angio chest abdomen pelvis Cat Scan 09/01/21 14:25 Completed ] Urgent Sestamibi Stress Test Request Routine Exams 09/01/21 16:04 Draft XR chest 1V portable [id number] Urgent Exams 09/01/21 11:27 Completed NM fareed perf SPECT r/s* [id number] Routine Nuc Med 09/02/21 16:04 Completed Pending at discharge Category Date Time Status Comprehensive Metabolic Panel AM LABS Lab 09/03/21 04:00 Ordered Comprehensive Metabolic Panel AM LABS Lab 09/04/21 04:00 Ordered Magnesium AM LABS Lab 09/03/21 04:00 Ordered Magnesium AM LABS Lab 09/04/21 04:00 Ordered Phosphorus AM LABS Lab 09/03/21 04:00 Ordered Phosphorus AM LABS Lab 09/04/21 04:00 Ordered CV. echo complete* [id number] Routine Ultrasound 09/01/21 16:04 Taken Radiology Impressions Chest X-Ray 09/01/21 11:27 Impression: Negative chest. Chest/Abdomen/Pelvis CTA 09/01/21 14:25 IMPRESSION: 1. No thoracic or abdominal aortic aneurysm or dissection. 2. Very minimal atherosclerotic disease within the thoracic and abdominal aortas. 3. No pneumothorax or pleural effusion. 4. No pulmonary embolism. 5. Mild mid to lower circumferential thickening of the esophagus. Correlate for gastroesophageal reflux disease and esophagitis. 6. Diffuse moderate constipation with sigmoid diverticulosis. No acute diverticulitis. 7. Hepatic steatosis. 8. Prior cholecystectomy and hysterectomy. Laboratory Results WBC 8.0 10^3/uL (4.0-10.0) 09/01/21 11:40 RBC 5.08 10^6/uL (4.1-5.3) 09/01/21 11:40 Hgb 14.2 g/dL (11.5-15.3) 09/01/21 11:40 Hct 42.5 % (37.0-47.0) 09/01/21 11:40 MCV 83.7 fl (81-99) 09/01/21 11:40 MCH 28.0 pg (28.0-34.0) 09/01/21 11:40 MCHC 33.4 g/dL (30.0-36.0) 09/01/21 11:40 RDW 12.4 % (12.1-15.1) 09/01/21 11:40 Plt Count 278 10^3/cmm (130-400) 09/01/21 11:40 MPV 9.9 fL (7.4-10.4) 09/01/21 11:40 Neut % (Auto) 63.7 % 09/01/21 11:40 Lymph % (Auto) 24.0 % 09/01/21 11:40 Starke % (Auto) 8.6 % 09/01/21 11:40 Eos % (Auto) 1.9 % 09/01/21 11:40 Baso % (Auto) 0.8 % 09/01/21 11:40 Neut # (Auto) 5.07 10^3/uL (1.8-7.7) 09/01/21 11:40 Lymph # (Auto) 1.9 10^3/uL (0.8-4.8) 09/01/21 11:40 Starke # (Auto) 0.7 10^3/uL (0.2-0.9) 09/01/21 11:40 Eos # (Auto) 0.2 10^3/uL (0.0-0.8) 09/01/21 11:40 Baso # (Auto) 0.1 10^3/uL (0.0-0.1) 09/01/21 11:40 Nucleated RBC % (auto) 0 % 09/01/21 11:40 Nucleated RBCs # 0.0 /100WBC 09/01/21 11:40 ESR 5 mm/hr (0-15) 09/01/21 11:40 D-Dimer <= 0.27 ug/mIFEU (0-0.59) 09/01/21 13:45 Sodium 138 mmol/L (136-145) 09/02/21 01:19 Potassium 4.3 mmol/L (3.5-5.1) 09/02/21 01:19 Chloride 105 mmol/L (98-107) 09/02/21 01:19 Carbon Dioxide 24 mmol/L (22-29) 09/02/21 01:19 Anion Gap 13.3 (5-19) 09/02/21 01:19 BUN 11 mg/dL (8-23) 09/02/21 01:19 Creatinine 0.7 mg/dL (0.5-0.9) 09/02/21 01:19 GFR Calculation 84.0 mL/min (90-130) L 09/02/21 01:19 Glucose 173 mg/dL (65-115) H 09/02/21 01:19 POC Glucose 130 mg/dL (70-110) H 09/02/21 06:21 Estimat Average Glucose 177 09/01/21 11:40 Hemoglobin A1c 7.8 % (4.0-6.0) H 09/01/21 11:40 Calculated Osmolality 290 mOsm/kg (285-295) 09/02/21 01:19 Calcium 9.6 mg/dL (8.5-10.5) 09/02/21 01:19 Phosphorus 3.7 mg/dL (2.5-4.5) 09/02/21 01:19 Magnesium 2.1 mg/dL (1.7-2.3) 09/02/21 01:19 Total Bilirubin 0.2 mg/dL (0.15-1.2) 09/02/21 01:19 AST 13 U/L (0-32) 09/02/21 01:19 ALT 17 U/L (0-33) 09/02/21 01:19 Alkaline Phosphatase 78 IU/L (35-105) 09/02/21 01:19 Troponin T Baseline 6 ng/L (0-10) 09/01/21 11:40 Troponin T 120 Minute 6.26 ng/L (0-10) 09/01/21 13:45 Delta Troponin T 0.26 ABS# (0-10) 09/01/21 13:45 Troponin T Hi Sens 6Hr 6.96 ng/L (0-10) 09/01/21 17:28 Troponin T Hi Sens 6Hr Delta 0.96 ng/L (0-12) 09/01/21 17:28 NT-Pro-B Natriuret Pep 127 pg/mL (0-125) H 09/01/21 11:40 Total Protein 6.0 g/dL (6.6-8.7) L 09/02/21 01:19 Albumin 3.8 g/dL (3.5-5.2) 09/02/21 01:19 Globulin 2.2 g/dL (1.3-4.6) 09/02/21 01:19 Triglycerides 241 mg/dL (0-150) H 09/01/21 11:40 Cholesterol 230 mg/dL (0-200) H 09/01/21 11:40 LDL Cholesterol, Calc 129 mg/dL (50-129) 09/01/21 11:40 HDL Cholesterol 53 mg/dL (60-100) L 09/01/21 11:40 LDL/HDL Ratio 2.43 RATIO (0.00-3.22) 09/01/21 11:40 Cholesterol/HDL Ratio 4.34 mg/dL (0.0-4.40) 09/01/21 11:40 TSH 1.22 uIU/mL (0.27-4.20) 09/01/21 11:40 Urine Opiates Screen Positive ng/mL (Negative) H 09/01/21 16:17 Ur Barbiturates Screen Negative ng/mL (Negative) 09/01/21 16:17 Ur Phencyclidine Scrn Negative ng/mL (Negative) 09/01/21 16:17 Ur Amphetamines Screen Negative ng/mL (Negative) 09/01/21 16:17 U Benzodiazepines Scrn Negative ng/mL (Negative) 09/01/21 16:17 Urine Cocaine Screen Negative ng/mL (Negative) 09/01/21 16:17 U Marijuana (THC) Screen Negative ng/mL (Negative) 09/01/21 16:17 Vitals Last Vital Signs Temp 97.8 F 09/02/21 11:13 Pulse 74 09/02/21 11:13 Resp 20 H 09/02/21 11:13 BP 166/80 09/02/21 11:13 Pulse Ox 98 09/02/21 11:13 Discharge Plan Discharge Patient Disposition: Home Condition: Stable Prescriptions: New tramadol 50 mg Tablet 50 mg PO Q8H PRN (Reason: Moderate Pain) 7 Days Qty: 21 0RF nitroglycerin 0.4 mg Tablet, Sublingual 0.4 mg sublingual Q5M PRN (Reason: Chest Pain) 30 Days Qty: 30 0RF cyclobenzaprine 10 mg Tablet 5 mg PO TID PRN (Reason: Muscle Spasms) 7 Days Qty: 21 0RF carvedilol 3.125 mg Tablet 3.125 mg PO BID 30 Days Qty: 60 0RF Continued trazodone 50 mg tablet 100 mg PO BEDTIME 0RF aspirin 325 mg Tablet 325 mg PO BEDTIME 0RF azelastine 137 mcg (0.1 %) aerosol,spray 1 spray INTRANASAL BID 0RF Rx Instructions: use with flonase epinephrine 0.3 mg/0.3 mL auto-injector See Rx Instructions .ROUTE .COMPLEX 0RF Rx Instructions: use as directed prn Hair,Skin and Nails Tablet 2 tab PO DAILY 0RF fluticasone propionate 50 mcg/actuation spray,suspension 1 spray INTRANASAL BID 0RF levocetirizine 5 mg tablet 5 mg PO BEDTIME 0RF Rybelsus 7 mg tablet 7 mg PO QAM 0RF Changed lisinopril 10 mg tablet 10 mg PO Q12H Qty: 0 0RF Discharge Orders: Discharge Order (Routine); Ordered 09/02/21 Ordered By: Kirit Alcantar Referrals: Fabby Miguel, CLINICAL RESEARCH ANALYST [Primary Care Provider] - Discharge Diet: Cardiac Discharge Activity: Resume usual activity Patient Instructions: Opioid Safety Activity Restrictions/Additional Instructions: -For chest pain if you recurrent chest pain please go to the emergency room -For muscle spasm take Flexeril, tramadol as needed for muscle spasms, do not drive or operate heavy machinery or drink alcohol while taking these medications -Please follow-up with primary care provider in 1 week -For elevated blood pressure increase lisinopril to 10 twice a day -I added Coreg 3.125 twice daily Discharge Attestations Time Spent in Discharge Care*: less than 30 min Quality Metrics Clinical Quality Measures [ No reported AMI, CVA or VTE this stay] Coding Level of Care Code Acute g [facility] note Diagnoses Chest pain R07.9 Hypertension I10 Diabetes mellitus E11.9 Hyperlipidemia E78.5
[2021-09-02 12:04] LABS: Glucose Point of Care 188 mg/dL (70-110)
[2021-09-02] MEDS: cyclobenzaprine 10 mg Tablet 5 MG PO (12:16)
[2021-09-02] MEDS: TRAMadol 50 mg Tablet PO (12:16)
--- NOTE | 2021-09-02 13:28 | PC.NURSE ---
1326 dc instructions given and PIV removed. Pt verbalizes understanding of all instructions. Pt dressed and wheeled out to waiting private vehicle.
--- NOTE | 2021-09-02 16:04 | NMCV_ITS ---
NM fareed perf SPECT r/s* [id number] Rahel Espinoza Age: 65 Gender: F : 1955 Exam Date: 09/02/2021 16:04 Ordering Phys: Kirit Alcantar MD Technologist: REGINA Alan Exam Location: [facility] Indications: CHEST PAIN STRESS TEST Please see separate stress test report in [facility] for full findings IMAGE PROTOCOL Rest/Stress 1 Lexiscan Day Radiopharmaceutical Dose (mCi) Administration Site Administered by Rest: Tc-99m 10.8 IV REGINA Phelps Sestamibi Stress:Tc-99m 32.7 IV REGINA Phelps Sestamibi Rest: 02-Sep-2021 60 Discovery 630 Stress: 02-Sep-2021 30 Discovery 630 0.4mg Lexiscan. Images obtained in supine and prone position. SPECT RESULTS Technical Quality: Excellent Raw Data Analysis: Normal Image Corrections: No attenuation or motion correction applied Summed Stress Score: 0 Summed Rest Score: 0 Summed Difference Score: 0 PERFUSION FINDINGS SPECT images demonstrate homogeneous tracer distribution throughout the myocardium. FUNCTIONAL RESULTS (calculated via Gated SPECT) Stress Image LV EF (%): 75 Stress EDV (mL):69 TID: 1.05 Stress ESV (mL):17 FUNCTIONAL FINDINGS: There is normal left ventricular systolic function. IMPRESSIONS 1. Normal myocardial perfusion imaging with no evidence of ischemia 2. LV systolic function is normal Raj Hernandez MD (Electronically Signed) Final Date: 02 September 2021 09:41 S
== END 2021-09-02 13:26 | disposition home or self-care (01) ==
LOC: ER 14:58 → MEDSURG 15:26
PROVIDERS: Admitting Provider Family Medicine; Emergency Provider Emergency Medicine; PCP Nurse Practitioner Family; Visit Provider Family Medicine
DX: R07.9 Chest pain, unspecified (principal); I10 Essential (primary) hypertension; E11.9 Type 2 diabetes mellitus without complications; E78.5 Hyperlipidemia, unspecified; Z79.82 Long term (current) use of aspirin; Z87.891 Personal history of nicotine dependence; Z82.49 Family history of ischemic heart disease and other diseases of the circulatory system; Z83.3 Family history of diabetes mellitus
CPT/HCPCS: 36415; 36416; 71045; 71275; 74174; 78452; 80048; 80053; 80061; 80306; 82962; 83036; 83735; 83880; 84100; 84443; 84484; 85025; 85378; 85651; 93005; 93017; 93306; 96365; 96372; 96375; 99285; A9500; G0378; J1650; J2270; J2405; J2785; Q9967

== ENCOUNTER 2021-09-09 10:18 | Outpatient (CLI) | payer MEDICARE, SELFPAY ==
--- NOTE | 2021-09-09 10:34 | XR_ITS ---
WS: [id number] XR cervical spine 3V* [id number] REASON FOR EXAM: MUSCULOSKELETAL CHEST PAIN FINDINGS: Mild left lateral curvature of the cervical spine on the AP view. Mild straightening of the normal lo rdosis on the lateral view. No vertebral compression deformity or other focal vertebral body abnormality is noted. The intervertebral disc spaces are relatively well-preserved. No significant spondylolisthesis. XR/XR cervical spine 3V* [id number] IMPRESSION: No significant abnormality for age.
--- NOTE | 2021-09-09 10:35 | XR_ITS ---
WS: [email or web address] XR thoracic spine 2V [id number] REASON FOR EXAM: MUSCULOSKELETAL CHEST PAIN FINDINGS: Normal thoracic spine alignment on the AP and lateral views. Intervertebral disc space narrowing with anterior osteophyte formation in the lower thoracic spine. T his is most prominent at T8-T12. There are chronic appearing mild biconcave compression deformities of T8-T12. No definite acute verte bral body abnormality. XR/XR thoracic spine 2V [id number] IMPRESSION: Degenerative changes with no focal acute abnormality.
== END 2021-09-09 10:19 | disposition home or self-care (01) ==
PROVIDERS: PCP Nurse Practitioner Family; Visit Provider Nurse Practitioner Family
DX: R07.89 Other chest pain (principal); M54.2 Cervicalgia; M25.512 Pain in left shoulder
CPT/HCPCS: 72040; 72070

== ENCOUNTER → 2021-10-25 08:49 | Outpatient (BNVA) | payer MEDICARE, SELFPAY | PROVIDERS: PCP Nurse Practitioner Family; Referring Provider Nurse Practitioner Family; Visit Provider Podiatrist Foot & Ankle Surgery | DX: M21.371 Foot drop, right foot (principal); M21.372 Foot drop, left foot; M19.079 Primary osteoarthritis, unspecified ankle and foot; E11.9 Type 2 diabetes mellitus without complications; Z87.891 Personal history of nicotine dependence | CPT/HCPCS: 99213; 99214 ==

== ENCOUNTER 2022-02-13 10:53 | Outpatient (CLI) | payer MEDICARE, SELFPAY ==
--- NOTE | 2022-02-13 11:38 | XRR_ITS ---
PROCEDURE INFORMATION: Exam: XR Right Shoulder Exam date and time: 02/13/2022 11:41 AM Age: 66 years old Clinical indication: Pain; Shoulder; Right; Additional info: Pain in right shoulder TECHNIQUE: Imaging protocol: Radiologic exam of the Right shoulder. Views: 2 or more views. 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 No acute fracture nor subluxation. No osseous erosion nor periosteal reaction. Soft tissues: Normal. XR/XR shoulder RT min 2V* [id number] IMPRESSION: 1. 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 2. No acute osseous pathology.
== END 2022-02-13 10:54 | disposition home or self-care (01) ==
PROVIDERS: PCP Nurse Practitioner Family; Visit Provider Nurse Practitioner Family
DX: M25.511 Pain in right shoulder (principal)
CPT/HCPCS: 73030

== ENCOUNTER → 2022-02-22 12:39 | Outpatient (BNVA) | payer MEDICARE, SELFPAY | PROVIDERS: PCP Nurse Practitioner Family; Referring Provider Nurse Practitioner Family; Visit Provider Orthopaedic Surgery | DX: M75.31 Calcific tendinitis of right shoulder (principal); M75.01 Adhesive capsulitis of right shoulder | CPT/HCPCS: 20610; 99203; J0702; J3490 ==

== ENCOUNTER 2022-03-06 11:17 | Outpatient (RCR) | payer MEDICARE, SELFPAY | END 2022-03-24 23:59 | disposition home or self-care (01) | LOC: SPT 11:17 | PROVIDERS: PCP Nurse Practitioner Family; Visit Provider Orthopaedic Surgery | DX: M77.8 Other enthesopathies, not elsewhere classified (principal); M25.511 Pain in right shoulder | CPT/HCPCS: 97110; 97161 ==

== ENCOUNTER → 2022-03-28 12:41 | Outpatient (BNVA) | payer MEDICARE, SELFPAY | PROVIDERS: PCP Nurse Practitioner Family; Visit Provider Orthopaedic Surgery | DX: M75.31 Calcific tendinitis of right shoulder (principal); M75.01 Adhesive capsulitis of right shoulder | CPT/HCPCS: 99212 ==

== ENCOUNTER → 2022-05-02 10:26 | Outpatient (BNVA) | payer MEDICARE, SELFPAY | PROVIDERS: PCP Nurse Practitioner Family; Visit Provider Podiatrist Foot & Ankle Surgery | DX: E11.8 Type 2 diabetes mellitus with unspecified complications (principal); M21.371 Foot drop, right foot; M21.372 Foot drop, left foot; M19.072 Primary osteoarthritis, left ankle and foot; E11.9 Type 2 diabetes mellitus without complications; R26.9 Unspecified abnormalities of gait and mobility | CPT/HCPCS: 99214 ==

== ENCOUNTER 2022-05-10 06:00 | Outpatient (RCR) | payer MEDICARE, SELFPAY | END 2022-05-24 23:59 | disposition home or self-care (01) | LOC: SPT 06:00 | PROVIDERS: PCP Nurse Practitioner Family; Visit Provider Podiatrist Foot & Ankle Surgery | DX: M21.379 Foot drop, unspecified foot (principal) | CPT/HCPCS: 97161 ==

== ENCOUNTER 2022-05-25 06:00 | Outpatient (RCR) | payer MEDICARE, SELFPAY | END 2022-06-24 23:59 | disposition home or self-care (01) | LOC: SPT 06:00 | PROVIDERS: PCP Nurse Practitioner Family; Visit Provider Podiatrist Foot & Ankle Surgery | DX: M21.372 Foot drop, left foot (principal); M21.371 Foot drop, right foot | CPT/HCPCS: 97110 ==

== ENCOUNTER 2022-06-25 06:00 | Outpatient (RCR) | payer MEDICARE, SELFPAY | END 2022-06-28 23:59 | disposition home or self-care (01) | LOC: SPT 06:00 | PROVIDERS: PCP Nurse Practitioner Family; Visit Provider Podiatrist Foot & Ankle Surgery | DX: M21.371 Foot drop, right foot (principal); M21.372 Foot drop, left foot | CPT/HCPCS: 97110 ==

== ENCOUNTER → 2022-08-07 13:45 | Outpatient (BNVA) | payer MEDICARE, SELFPAY | PROVIDERS: PCP Nurse Practitioner Family; Visit Provider Podiatrist Foot & Ankle Surgery | DX: M96.0 Pseudarthrosis after fusion or arthrodesis (principal); M21.371 Foot drop, right foot; M21.372 Foot drop, left foot; D49.2 Neoplasm of unspecified behavior of bone, soft tissue, and skin; E11.8 Type 2 diabetes mellitus with unspecified complications; R26.9 Unspecified abnormalities of gait and mobility | CPT/HCPCS: 80053; 82550; 83036; 85025; 85651; 86036; 86140; 86160; 86162; 86235; 86255; 86376; 86431; 86812; 99214 ==

== ENCOUNTER → 2022-09-18 12:43 | Outpatient (BNVA) | payer MEDICARE, SELFPAY | PROVIDERS: PCP Nurse Practitioner Family; Visit Provider Podiatrist Foot & Ankle Surgery | DX: M21.371 Foot drop, right foot (principal); M21.372 Foot drop, left foot; M19.072 Primary osteoarthritis, left ankle and foot; E11.9 Type 2 diabetes mellitus without complications; R26.9 Unspecified abnormalities of gait and mobility | CPT/HCPCS: 99213 ==

== ENCOUNTER → 2022-10-09 09:03 | Outpatient (BNVA) | payer MEDICARE, SELFPAY | PROVIDERS: PCP Nurse Practitioner Family; Visit Provider Internal Medicine Rheumatology | DX: M05.79 Rheumatoid arthritis with rheumatoid factor of multiple sites without organ or systems involvement (principal); M62.81 Muscle weakness (generalized); Z79.899 Other long term (current) drug therapy; M19.90 Unspecified osteoarthritis, unspecified site; Z11.59 Encounter for screening for other viral diseases; Z71.85 Encounter for immunization safety counseling; R76.8 Other specified abnormal immunological findings in serum; G62.9 Polyneuropathy, unspecified; Z87.39 Personal history of other diseases of the musculoskeletal system and connective tissue; Z11.1 Encounter for screening for respiratory tuberculosis | CPT/HCPCS: 36415; 71046; 73130; 73630; 82040; 82085; 82310; 82550; 83735; 84100; 84132; 86480; 86704; 86803; 87340; 99205 ==

== ENCOUNTER 2022-11-08 11:05 | Outpatient (CLI) | payer MEDICARE, SELFPAY ==
[2022-11-08 12:06] LABS: Basophils # 0.1 10^3/uL (0.0-0.1); Basophils % 0.8 %; Eosinophils # 0.2 10^3/uL (0.0-0.8); Eosinophils % 3.4 %; Hematocrit 40.4 % (37.0-47.0); Lymphocytes # 1.5 10^3/uL (0.8-4.8); Lymphocytes % 22.5 %; Mean Corpuscular HGB Conc 32.2 g/dL (30.0-36.0); Mean Corpuscular Hemoglobin 27.8 pg (28.0-34.0); Mean Corpuscular Volume 86.3 fl (81-99); Mean Platelet Volume 9.9 fL (7.4-10.4); Monocytes # 0.6 10^3/uL (0.2-0.9); Monocytes % 9.6 %; Neutrophils # 4.11 10^3/uL (1.8-7.7); Neutrophils % 63.4 %; Nucleated Red Blood Cells % 0 %; Platelet Count 252 10^3/cmm (130-400); Red Blood Count 4.68 10^6/uL (4.1-5.3); Red Cell Distribution Width 13.4 % (12.1-15.1); White Blood Count 6.5 10^3/uL (4.0-10.0)
[2022-11-08 12:39] LABS: Alanine Aminotransferase 11 U/L (0-33); Alkaline Phosphatase 86 U/L (35-105); Aspartate Amino Transferase 9 U/L (0-32); C Reactive Protein 10.4 mg/L (0.0-4.9); Globulin 2.8 g/dL (1.3-4.6); Glomerular Filtration Rate 83.5 mL/min (90-130); Total Bilirubin 0.3 mg/dL (0.15-1.2); Total Protein 6.8 g/dL (6.6-8.7)
== END 2022-11-08 11:06 | disposition home or self-care (01) ==
PROVIDERS: PCP Nurse Practitioner Family; Visit Provider Internal Medicine Rheumatology
DX: M19.90 Unspecified osteoarthritis, unspecified site (principal); Z79.899 Other long term (current) drug therapy
CPT/HCPCS: 80076; 82565; 85025; 86140

== ENCOUNTER → 2022-11-09 09:22 | Outpatient (BNVA) | payer MEDICARE, SELFPAY | PROVIDERS: PCP Nurse Practitioner Family; Visit Provider Psychiatry & Neurology Neurology | DX: G25.0 Essential tremor (principal); M62.830 Muscle spasm of back; M54.6 Pain in thoracic spine; Z87.39 Personal history of other diseases of the musculoskeletal system and connective tissue; E11.9 Type 2 diabetes mellitus without complications; E78.5 Hyperlipidemia, unspecified; I10 Essential (primary) hypertension | CPT/HCPCS: 99203 ==

== ENCOUNTER 2022-11-30 07:39 | Outpatient (CLI) | payer MEDICARE, SELFPAY ==
--- NOTE | 2022-11-30 08:00 | MR_ITS ---
WS: [id number] MRI BRAIN WITH AND WITHOUT CONTRAST HISTORY: R25.1 - Tremor, unspecified COMPARISON: None available. TECHNIQUE: Multiplanar imaging performed through the brain with MultiHance 14 ml's IV. No acute infarcts are seen. An-white matter differentiation is well preserved. On the FLAIR and T2 sequences there are patchy areas of increased signal particularly in the periventricular distribution and greatest involving the RIGHT occipital horn. No signal abnormalities in the vito or the cerebell um. Prior lacunar infarct RIGHT frontal lobe adjacent to the frontal horn lateral ventricle. Ventricles and extra-axial spaces are normal. Clivus and pituitary gland are normal. Visualized posterior fossa and brainstem are also normal. No enhancing masses. On the postcontrast imaging there is a paucity of vessels in the RIGHT MCA ar tory. The proximal M1 segment marked paucity of vessels and very small caliber MCA. Similar findings but to a lesser extent on the LEFT. Dural venous sinuses are normal. Paranasal sinuses: Well aerated with no significant disease. Mastoid air cells: Normal. Calvarium and scalp: Normal. MR/MR head wo/w con [id number] IMPRESSION: 1. No acute infarct or enhancing mass. 2. Patchy areas of increased T2 signal predominantly in the periventricular wh ite matter from small vessel ischemic disease. Small lacunar infarct RIGHT fron nereida lobe adjacent to the lateral ventricle. 3. Narrowing of the middle cerebral arteries bilaterally, much greater on the RIGHT. Luminal narrowing noted in the proximal M1 segments. Paucity of vessels most significant in the distal RIGHT middle cerebral artery territory.
--- NOTE | 2022-11-30 08:45 | MR_ITS ---
WS: [email or web address] MRI CERVICAL SPINE with and without contrast. HISTORY: G25.0 - Essential tremor COMPARISON: None available. Technique: Multiplanar, multisequence noncontrast imaging of the cervical spine. Postcontrast MRI C-s pine, MultiHance 14 mL IV. Normal cervical alignment with no compression fracture or significant disc space narrowing. Signal within the cervical cord is normal. Visualized posterior fossa is unremarkable. Craniocervical junction, C1 and C2 relationship, odontoid process and soft tissues are normal. C2-C3: Normal. C3-C4: Very tiny central disc protrusion. No stenosis. C4-C5: Mild annular disc bulge with a tiny central disc protrusion and mild facet arthritis. Increase fluid in the LEFT facet joint. C5-C6: Mild disc bulging and osteophytic ridging. Small central disc protrusion. Mild bilateral annie inal narrowing. C6-C7: Mild osteophytic ridging. Facet disease encroaches upon the posterior thecal sac but does not contact the thecal sac. Very mild foraminal narrowing. C7-T1: Tiny central disc protrusion. No stenosis. Paravertebral soft tissues are negative. There is no discitis or osteomyelitis. No epidural abscess. No enhancement within the cord. MR/MR cervical spine wo/w [id number] IMPRESSION: 1. No significant central or foraminal stenosis throughout the cervical spine. 2. No discitis or osteomyelitis or abnormal enhancement in the cervical spine. 3. Mild facet joint arthritis and spondylitic changes.
--- NOTE | 2022-11-30 09:30 | MR_ITS ---
WS: [email or web address] MRI THORACIC SPINE with and without contrast HISTORY: G25.0 - Essential tremor COMPARISON: None available. TECHNIQUE: Multiplanar sequences are performed in sagittal and axial planes. Post contrast imaging, M ultiHance 14 mL IV. Mild increase in cervical lordosis and thoracic kyphosis. Posterior alignment is normal. Mild disc sp diana narrowing and desiccation throughout the thoracic spine. Schmorl's nodes defects in the mid thora cic spine. No signal abnormality within the thoracic cord. Conus tapers normally ends at L1. T1-2: No disc herniations or stenosis. Lobulated nerve root sleeve diverticulum on the LEFT. T2-3: Normal. T3-4: Normal. T4-5: Very mild foraminal narrowing. T5-6: Normal. T6-7: Normal. T7-8: Small bilateral nerve root sleeve diverticulum. No stenosis. Mild facet arthritis. T8-9: Normal. T9-10: Mild facet arthritis. T10-11: Mild annular disc bulging with moderate facet joint arthritis encroaching upon the posterior lateral thecal sac. Moderate size LEFT nerve root sleeve diverticulum. Very mild central with mild t o moderate foraminal stenosis. T11-12: Bilateral nerve root sleeve diverticulum and mild facet arthritis. No evidence for discitis or osteomyelitis. No abnormal enhancement within the thoracic cord. No fluid collections. MR/MR thoracic spine wo/w [id number] IMPRESSION: 1. No discitis or osteomyelitis. 2. No high-grade central or foraminal thoracic stenosis. 3. Multilevel nerve root sleeve diverticula. 4. Mild to moderate foraminal stenosis and mild central stenosis at T10-11 due to disc bulging and facet disease.
[2022-11-30] MEDS: gadobenate dimeglumine 20 mL vial IV (10:30)
== END 2022-11-30 07:40 | disposition home or self-care (01) ==
PROVIDERS: PCP Nurse Practitioner Family; Visit Provider Psychiatry & Neurology Neurology
DX: M47.812 Spondylosis without myelopathy or radiculopathy, cervical region (principal); M48.04 Spinal stenosis, thoracic region; G25.0 Essential tremor; M54.6 Pain in thoracic spine; M62.830 Muscle spasm of back; Z87.39 Personal history of other diseases of the musculoskeletal system and connective tissue; R25.1 Tremor, unspecified
CPT/HCPCS: 70553; 72156; 72157; A9577

== ENCOUNTER → 2022-12-20 10:02 | Outpatient (BNVA) | payer MEDICARE, SELFPAY | PROVIDERS: PCP Nurse Practitioner Family; Visit Provider Internal Medicine Rheumatology | DX: M05.79 Rheumatoid arthritis with rheumatoid factor of multiple sites without organ or systems involvement (principal); Z79.899 Other long term (current) drug therapy; Z71.85 Encounter for immunization safety counseling; R76.8 Other specified abnormal immunological findings in serum; G62.9 Polyneuropathy, unspecified; Z87.39 Personal history of other diseases of the musculoskeletal system and connective tissue | CPT/HCPCS: 99214 ==

== ENCOUNTER → 2023-01-03 14:13 | Outpatient (BNVA) | payer MEDICARE, SELFPAY | PROVIDERS: PCP Nurse Practitioner Family; Visit Provider Psychiatry & Neurology Neurology | DX: R25.1 Tremor, unspecified (principal); I66.03 Occlusion and stenosis of bilateral middle cerebral arteries; I10 Essential (primary) hypertension; M50.30 Other cervical disc degeneration, unspecified cervical region; M51.34 Other intervertebral disc degeneration, thoracic region; E11.9 Type 2 diabetes mellitus without complications; M06.9 Rheumatoid arthritis, unspecified; E78.5 Hyperlipidemia, unspecified | CPT/HCPCS: 99212 ==

== ENCOUNTER 2023-01-18 08:47 | Outpatient (CLI) | payer MEDICARE, SELFPAY ==
[2023-01-18 09:19] LABS: Basophils % 0.5 %; Eosinophils # 0.2 10^3/uL (0.0-0.8); Eosinophils % 2.4 %; Hematocrit 40.6 % (37.0-47.0); Hemoglobin 12.8 g/dL (11.5-15.3); Lymphocytes # 1.5 10^3/uL (0.8-4.8); Lymphocytes % 20.1 %; Mean Corpuscular HGB Conc 31.5 g/dL (30.0-36.0); Mean Corpuscular Hemoglobin 27.5 pg (28.0-34.0); Mean Corpuscular Volume 87.3 fl (81-99); Mean Platelet Volume 9.6 fL (7.4-10.4); Monocytes # 0.3 10^3/uL (0.2-0.9); Monocytes % 3.7 %; Neutrophils # 5.55 10^3/uL (1.8-7.7); Neutrophils % 72.9 %; Nucleated Red Blood Cells % 0 %; Platelet Count 261 10^3/cmm (130-400); Red Blood Count 4.65 10^6/uL (4.1-5.3); Red Cell Distribution Width 13.8 % (12.1-15.1); White Blood Count 7.6 10^3/uL (4.0-10.0)
[2023-01-18 09:43] LABS: Alanine Aminotransferase 22 U/L (0-33); Albumin Level 3.8 g/dL (3.5-5.2); Alkaline Phosphatase 83 U/L (35-105); Aspartate Amino Transferase 15 U/L (0-32); C Reactive Protein 7.1 mg/L (0.0-4.9); Globulin 2.5 g/dL (1.3-4.6); Glomerular Filtration Rate 71.5 mL/min (90-130); Total Bilirubin 0.3 mg/dL (0.15-1.2); Total Protein 6.3 g/dL (6.6-8.7)
== END 2023-01-18 08:48 | disposition home or self-care (01) ==
PROVIDERS: PCP Nurse Practitioner Family; Visit Provider Internal Medicine Rheumatology
DX: M05.79 Rheumatoid arthritis with rheumatoid factor of multiple sites without organ or systems involvement (principal); Z79.899 Other long term (current) drug therapy
CPT/HCPCS: 36415; 80076; 82565; 85025; 86140

== ENCOUNTER 2023-01-25 07:35 | Outpatient (CLI) | payer MEDICARE, SELFPAY ==
--- NOTE | 2023-01-25 08:00 | CT_ITS ---
WS: [email or web address] CT ANGIOGRAM CEREBRAL AND CAROTID ARTERIES HISTORY: G25.0 - Essential tremor TECHNIQUE: CT angiogram is performed of the carotid and cerebral arteries. During arterial injection imaging is obtained from the skull vertex to the aortic arch in 1.25 mm imaging. Coronal and sagittal reformats are submitted. Additional multi planar reformats of the carotid and cerebral arteries are submitted, MIP imaging also reviewed. NASCET criteria utilized. [facility] at least one of these dose optimization techniques: automated exposure control; mA and/or kV adjust ment per patient size (includes targeted exams where dose is matched to clinical indication); or iter ative reconstruction. CONTRAST: Omnipaque 350; 100 mL IV. DLP: 1197.17 mGy.cm COMPARISON: None available. Noncontrast head CT demonstrates no areas of hemorrhage or mass effect. No significant atrophy. Mild small vessel ischemic disease. Carotid Angiogram: Right carotid: Common carotid artery: Arises normally from the innominate artery. No significant plaque or stenosis. Internal carotid artery: No plaque or stenosis. External carotid artery: Patent. Left carotid: Common carotid artery: Bovine arch. No stenosis. Internal carotid artery: No plaque or stenosis. External carotid artery: Patent. Right vertebral artery: Unremarkable. Left vertebral artery: Very slightly dominant. No stenosis. Subclavian arteries: No stenosis or significant abnormality. Upper thorax: Normal. Thyroid gland: Normal. Osseous structures: Unremarkable. CEREBRAL ANGIOGRAM: Intracranial vertebral arteries: Mildly dominant LEFT vertebral artery. Both vertebral arteries are p atent. Basilar artery: No significant stenosis or occlusion. No aneurysm. Intracranial Internal carotid arteries: No high-grade stenosis. There is a small amount of plaque not ed bilaterally through the cavernous sinuses. Middle cerebral arteries: RIGHT middle cerebral artery is smaller caliber than the LEFT as seen on th e recent MRI of the brain. There is no irregularity or wall thickening. This is probably normal for t his patient. No aneurysms are identified. M1 and M2 segments appear normal caliber otherwise. No bead ing. No thrombosis. Anterior cerebral arteries and ACOM: Normal. Posterior cerebral arteries and PCOM's: Normal. Dural venous sinuses are normally enhancing. Mastoid air cells: Normal. Paranasal sinuses: Normal. Calvarium: Normal. CT/CT angio headneck* [id number] IMPRESSION: 1. No cervical carotid artery stenosis or significant atherosclerotic disease. 2. Mild atherosclerotic plaque in the cavernous portions of the carotid arteri es. No stenosis. 3. Very mild narrowing of the RIGHT MCA as compared to the LEFT as also seen o n the prior MRI. The artery is otherwise normal. Suspect this is normal variati on for this patient. There is no arterial beading, thrombosis or evidence for v asculitis. 4. No cerebral aneurysms.
[2023-01-25] MEDS: iohexol 350 mg/mL 500 mL Btl (per mL) IV (08:07)
== END 2023-01-25 07:36 | disposition home or self-care (01) ==
PROVIDERS: PCP Nurse Practitioner Family; Visit Provider Psychiatry & Neurology Neurology
DX: G25.0 Essential tremor (principal); Z87.39 Personal history of other diseases of the musculoskeletal system and connective tissue
CPT/HCPCS: 70496; 70498; Q9967

== ENCOUNTER → 2023-03-08 10:11 | Outpatient (BNVA) | payer MEDICARE, SELFPAY | PROVIDERS: PCP Nurse Practitioner Family; Visit Provider Internal Medicine Rheumatology | DX: Z79.899 Other long term (current) drug therapy (principal); M05.79 Rheumatoid arthritis with rheumatoid factor of multiple sites without organ or systems involvement; Z71.85 Encounter for immunization safety counseling; R76.8 Other specified abnormal immunological findings in serum; G62.9 Polyneuropathy, unspecified; Z87.39 Personal history of other diseases of the musculoskeletal system and connective tissue | CPT/HCPCS: 99214 ==

== ENCOUNTER → 2023-03-19 13:33 | Outpatient (BNVA) | payer MEDICARE, SELFPAY | PROVIDERS: PCP Nurse Practitioner Family; Visit Provider Podiatrist Foot & Ankle Surgery | DX: M21.371 Foot drop, right foot; M21.372 Foot drop, left foot; E11.9 Type 2 diabetes mellitus without complications; R26.9 Unspecified abnormalities of gait and mobility; M19.072 Primary osteoarthritis, left ankle and foot; M19.071 Primary osteoarthritis, right ankle and foot | CPT/HCPCS: 99213 ==

== ENCOUNTER → 2023-03-20 14:27 | Outpatient (BNVA) | payer MEDICARE, SELFPAY | PROVIDERS: PCP Nurse Practitioner Family; Visit Provider Psychiatry & Neurology Neurology | DX: G25.0 Essential tremor (principal) | CPT/HCPCS: 99212 ==

== ENCOUNTER → 2023-05-31 09:15 | Outpatient (BNVA) | payer MEDICARE, SELFPAY | PROVIDERS: PCP Nurse Practitioner Family; Visit Provider Podiatrist Foot & Ankle Surgery | DX: L60.3 Nail dystrophy (principal); L60.0 Ingrowing nail | CPT/HCPCS: 11750 ==

== ENCOUNTER → 2023-06-21 10:25 | Outpatient (BNVA) | payer MEDICARE, SELFPAY | PROVIDERS: PCP Nurse Practitioner Family; Visit Provider Podiatrist Foot & Ankle Surgery | DX: L60.0 Ingrowing nail (principal) | CPT/HCPCS: 99213 ==

== ENCOUNTER → 2023-07-05 11:21 | Outpatient (BNVA) | payer MEDICARE, SELFPAY | PROVIDERS: PCP Nurse Practitioner Family; Visit Provider Internal Medicine Rheumatology | DX: Z79.899 Other long term (current) drug therapy (principal); M05.79 Rheumatoid arthritis with rheumatoid factor of multiple sites without organ or systems involvement; Z71.85 Encounter for immunization safety counseling; R76.8 Other specified abnormal immunological findings in serum; G62.89 Other specified polyneuropathies; Z87.39 Personal history of other diseases of the musculoskeletal system and connective tissue | CPT/HCPCS: 36415; 80076; 82565; 85025; 86140; 99214 ==

== ENCOUNTER → 2023-07-12 10:21 | Outpatient (BNVA) | payer MEDICARE, SELFPAY | PROVIDERS: PCP Nurse Practitioner Family; Visit Provider Podiatrist Foot & Ankle Surgery | DX: L60.0 Ingrowing nail (principal) | CPT/HCPCS: 99213 ==

== ENCOUNTER → 2023-08-09 09:49 | Outpatient (BNVA) | payer MEDICARE, SELFPAY | PROVIDERS: PCP Nurse Practitioner Family; Visit Provider Podiatrist Foot & Ankle Surgery | DX: L60.0 Ingrowing nail (principal); E11.69 Type 2 diabetes mellitus with other specified complication | CPT/HCPCS: 99213 ==

== ENCOUNTER → 2023-09-13 11:17 | Outpatient (BNVA) | payer MEDICARE, SELFPAY | PROVIDERS: PCP Nurse Practitioner Family; Visit Provider Podiatrist Foot & Ankle Surgery | DX: Z98.890 Other specified postprocedural states; M79.671 Pain in right foot; L60.0 Ingrowing nail; E11.69 Type 2 diabetes mellitus with other specified complication | CPT/HCPCS: 11730; 73630 ==

== ENCOUNTER → 2023-09-27 12:18 | Outpatient (BNVA) | payer MEDICARE, SELFPAY | PROVIDERS: PCP Nurse Practitioner Family; Visit Provider Podiatrist Foot & Ankle Surgery | DX: E11.69 Type 2 diabetes mellitus with other specified complication (principal); L03.031 Cellulitis of right toe | CPT/HCPCS: 99213 ==

== ENCOUNTER → 2023-10-12 11:11 | Outpatient (BNVA) | payer MEDICARE, SELFPAY | PROVIDERS: PCP Nurse Practitioner Family; Visit Provider Podiatrist Foot & Ankle Surgery | DX: L60.0 Ingrowing nail (principal); E11.69 Type 2 diabetes mellitus with other specified complication; G62.89 Other specified polyneuropathies | CPT/HCPCS: 11730 ==

== ENCOUNTER → 2023-10-29 14:54 | Outpatient (BNVA) | payer MEDICARE, SELFPAY | PROVIDERS: PCP Nurse Practitioner Family; Visit Provider Podiatrist Foot & Ankle Surgery | DX: L60.0 Ingrowing nail (principal) | CPT/HCPCS: 99213 ==

== ENCOUNTER 2023-11-12 11:14 | Emergency (ER) | payer MEDICARE, SELFPAY ==
[2023-11-12 11:19] VITALS: BP 159/87; PULSE 88; RESP 16; TEMP 36.6; O2SAT 99
[2023-11-12 11:27] VITALS: BP 134/80; PULSE 89; O2SAT 97
--- NOTE | 2023-11-12 11:28 | CT_ITS ---
WS: [email or web address] CT HEAD NONCONTRAST HISTORY: ACUTE STROKE SYMPTOMS TECHNIQUE: Contiguous axial imaging performed through the brain in 2.5 mm imaging. Bone and soft tiss ue windows. Sagittal and coronal reformats reviewed. All CT scans at [facility] use at least one of these dose optimization techniques: automated exposure control; mA and/or kV adjustment per pa tient size (includes targeted exams where dose is matched to clinical indication); or iterative recon struction. DLP: 1134.88 mGy COMPARISON: 01/25/2023 No acute intracranial hemorrhage, midline shift or mass effect. Mild atrophy and small vessel ischemic disease. Bilateral lacunar infarcts in the inferior basal gang aysha versus perivascular spaces. Mild small vessel ischemic disease. Ventricles: Normal size with no hydrocephalus. No inferior displacement of the cerebellar tonsils. Paranasal sinuses: As visualized are clear. Mastoid air cells: Well pneumatized. Calvarium and scalp: Hyperostosis frontalis interna. CT/CT head thrombolytic [id number] IMPRESSION: 1. No acute intracranial hemorrhage or edema. 2. Mild atrophy and mild small vessel ischemic disease. Notified Susan Maier MD at 11/12/2023 11:37 AM.
--- NOTE | 2023-11-12 11:39 | XRR_ITS ---
PROCEDURE INFORMATION: Exam: XR Chest Exam date and time: 11/12/2023 11:49 AM Age: 68 years old Clinical indication: Other: Weakness TECHNIQUE: Imaging protocol: Radiologic exam of the chest. Views: 1 view. COMPARISON: CR XR chest 2V* [id number] 10/09/2022 11:04 AM FINDINGS: Lungs: Probable mild left basilar atelectasis. No large focal consolidation to suggest pneumonia. Pleural spaces: No large pleural effusion. No distinct pneumothorax. Heart/Mediastinum: Cardiomediastinal silhouette is midline and normal in size. Bones/joints: No acute osseous findings. XR/XR chest 1V portable [id number] IMPRESSION: 1. Probable mild left basilar atelectasis. 2. No large focal consolidation to suggest pneumonia.
--- NOTE | 2023-11-12 11:39 | W.ED.NEUROSD ---
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 She says she started having a headache behind both of her eyes last night. Which was worse this morning. She woke up with the symptoms. And her felt like her speech seemed slightly different. And that her right lower lip was not moving the same as the left lower lip. No focal weakness. No altered mental status. I do not observe any speech difficulties. Review of Systems Narrative: Constitutional symptoms: Negative except as documented in HPI. Skin symptoms: Negative except as documented in HPI. Eye symptoms: Negative except as documented in HPI. ENMT symptoms: Negative except as documented in HPI. Respiratory symptoms: Negative except as documented in HPI. Cardiovascular symptoms: Negative except as documented in HPI. Gastrointestinal symptoms: Negative except as documented in HPI. Genitourinary symptoms: Negative except as documented in HPI. Musculoskeletal symptoms: Negative except as documented in HPI. Neurologic symptoms: Negative except as documented in HPI. Psychiatric symptoms: Negative except as documented in HPI. Endocrine symptoms: Negative except as documented in HPI. 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 Path: Hidradenoma papilliferum. Performed by Dr. Jeffrey at [facility] in [place], [place]. History of dental surgery S/P tonsillectomy and adenoidectomy S/P laparoscopic cholecystectomy S/P laparoscopic assisted vaginal hysterectomy (LAVH) (~1990) LAVH/BSO for endometriosis. Family History Daughter Ovarian cancer, Onset Age: 43 Mother Diabetes Hypertension Hyperlipidemia Stroke Seizures Clotting disorder Other Rheumatoid arthritis Denies family history of Colon cancer Lupus Heart disease Breast cancer Anesthesia complication Bleeding disorder Family history of premature coronary artery disease Cancer Uterine cancer Thyroid disease Social History Smoking and tobacco/nicotine status: never used tobacco/nicotine Physical Exam Narrative: EXAM NARRATIVE: General: Alert, no acute distress. Skin: Warm, dry. Head: Normocephalic, atraumatic. Neck: Supple, trachea midline. Eye: Extraocular movements are intact. Ears, nose, mouth and throat: mucosa moist. Cardiovascular: Regular, Normal peripheral perfusion. Respiratory: Lungs are clear to auscultation, respirations are non-labored, breath sounds are equal, Symmetrical chest wall expansion. Gastrointestinal: Soft, Nontender, Non distended, Normal bowel sounds. Musculoskeletal: Normal ROM, no deformity. Neurological: Alert and oriented, No focal neurological deficit observed. Patient's reports that he thinks her right lower lip is slightly lower than the other and that her speech sounds slightly different than normal. I do not appreciate this Psychiatric: Cooperative, appropriate mood & affect. Course Vital Signs: Vital signs: Vital Signs Temperature 97.8 F 11/12/23 11:19 Pulse Rate 71 11/12/23 15:14 Respiratory Rate 16 11/12/23 11:19 Blood Pressure 147/81 11/12/23 12:43 Pulse Oximetry 97 11/12/23 15:14 Oxygen Delivery Me thod Room Air 11/12/23 12:43 MDM - Neuro Symptoms/Deficit Medical Decision Making Medical decision making: Differential diagnosis for patient with focal neurologic deficit(s) includes but not limited to and based on the above HPI, review of systems and physical exam: ischemic stroke, hemorrhagic stroke and embolic stroke secondary to atrial fibrillation), TIA, Delgado's palsey, metabolic encephalopathy with previous stroke. Orders placed to evaluate differential diagnosis based on the above differential, HPI and physical exam NIH Stroke Scale/Score (NIHSS) from [email or web address] on 11/12/2023 All calculations should be rechecked by clinician prior to use RESULT SUMMARY: 1 points NIH Stroke Scale INPUTS: 1A: Level of consciousness ?> 0 = Alert; keenly responsive 1B: Ask month and age ?> 0 = Both questions right 1C: 'Blink eyes' & 'squeeze hands' ?> 0 = Performs both tasks 2: Horizontal extraocular movements ?> 0 = Normal 3: Visual silva ?> 0 = No visual loss 4: Facial palsy ?> 1 = Minor paralysis (flat nasolabial fold, smile asymmetry) 5A: Left arm motor drift ?> 0 = No drift for 10 seconds 5B: Right arm motor drift ?> 0 = No drift for 10 seconds 6A: Left leg motor drift ?> 0 = No drift for 5 seconds 6B: Right leg motor drift ?> 0 = No drift for 5 seconds 7: Limb Ataxia ?> 0 = No ataxia 8: Sensation ?> 0 = Normal; no sensory loss 9: Language/aphasia ?> 0 = Normal; no aphasia 10: Dysarthria ?> 0 = Normal 11: Extinction/inattention ?> 0 = No abnormality Lab Review: Laboratory results were reviewed and interpreted by myself the emergency room physician. White count is normal at 8. Hemoglobin is normal at 13.8. BUN and creatinine are 16 and 0.7. Patient does have a urinary tract infection. CT head: No acute intracranial process. no intracranial hemorrhage, no evidence of infarct. no evidence of acute fracture.there is some mild ischemic changes and mild volume loss. This was reviewed and interpreted by myself the ER physician. I also discussed the findings with the radiologist on-call. Consultation: I spoke with Dr. Campoverde with neurology. She agrees no interventions at this time. NIH of a may be 1. And symptoms started last night. Prolonged length of stay due to delay and receiving results of patient's comprehensive metabolic panel. This was not received till 2 hours. Then a CTA was done. There was then difficulty getting the CTA because of line issues. Ultimately I discussed this with the patient and given that I do not think she has had a stroke but more I reviewed the patient's medical record. Reexamination: Patient remained stable. No obvious focal motor deficits. She is very tearfu over the IV sticks that she has gotten and does not want to do a CT scan. She is not confused. No slurred speech. No increased work of breathing. Assessment and plan: Urinary tract infection Metabolic encephalopathy, mild -IV Rocephin in the emergency room - Discharged home - Discussed findings and plan with patient. Answered any questions. - All laboratory values were reviewed and interpreted personally by myself, the ER physician - All imaging was reviewed and interpreted personally by myself, the ER physician. - Evaluation and treatment of this problem were appropriate in the emergency setting Lab Data 11/12/23 12:45 11/12/23 12:[address] 11/12/23 11:28 IMPRESSION: 1. No acute intracranial hemorrhage or edema. 2. Mild atrophy and mild small vessel ischemic disease. Notified Susan Maier MD at 11/12/2023 11:37 AM. Chest X-Ray 11/12/23 11:39 IMPRESSION: 1. Probable mild left basilar atelectasis. 2. No large focal consolidation to suggest pneumonia. Laboratory Results WBC 8.54 10^3/uL (3.29-11.43) 11/12/23 12:45 RBC 4.88 10^6/uL (3.85-5.65) 11/12/23 12:45 Hgb 13.80 g/dL (11.27-16.99) 11/12/23 12:45 Hct 42.0 % (36-47) 11/12/23 12:45 MCV 86.1 fl (85-98) 11/12/23 12:45 MCH 28.3 pg (27-33) 11/12/23 12:45 MCHC 32.9 g/dL (30-55) 11/12/23 12:45 RDW 12.7 % (12.1-15.1) 11/12/23 12:45 Plt Count 259 10^3/cmm (157-399) 11/12/23 12:45 MPV 9.8 fL (7.4-10.4) 11/12/23 12:45 Neut % (Auto) 59.0 % 11/12/23 12:45 Lymph % (Auto) 28.9 % 11/12/23 12:45 [place] % (Auto) 9.6 % 11/12/23 12:45 Eos % (Auto) 1.5 % 11/12/23 12:45 Baso % (Auto) 0.5 % 11/12/23 12:45 Neut # (Auto) 5.04 10^3/uL (1.8-7.7) 11/12/23 12:45 Lymph # (Auto) 2.5 10^3/uL (0.8-4.8) 11/12/23 12:45 [place] # (Auto) 0.8 10^3/uL (0.2-0.9) 11/12/23 12:45 Eos # (Auto) 0.1 10^3/uL (0.0-0.8) 11/12/23 12:45 Baso # (Auto) 0.0 10^3/uL (0.0-0.1) 11/12/23 12:45 Nucleated RBC % (auto) 0 % 11/12/23 12:45 Nucleated RBCs # 0.0 /100WBC 11/12/23 12:45 PT 12.70 SECONDS (12.1-14.9) 11/12/23 12:45 INR 0.93 (0.8-1.2) 11/12/23 12:45 APTT 23.9 SECONDS (23.9-36.7) 11/12/23 12:45 Sodium 136 mmol/L (136-145) 11/12/23 12:45 Potassium 4.1 mmol/L (3.5-5.1) 11/12/23 12:45 Chloride 103 mmol/L (98-107) 11/12/23 12:45 Carbon Dioxide 21 mmol/L (22-29) L 11/12/23 12:45 Anion Gap 16.1 (5-19) 11/12/23 12:45 BUN 16 mg/dL (8-23) 11/12/23 12:45 Creatinine 0.7 mg/dL (0.5-0.9) 11/12/23 12:45 GFR Calculation 83.2 mL/min (90-130) L 11/12/23 12:45 Glucose 108 mg/dL (65-115) 11/12/23 12:45 Calculated Osmolality 284 mOsm/kg (285-295) L 11/12/23 12:45 Calcium 9.4 mg/dL (8.5-10.5) 11/12/23 12:45 Total Bilirubin 0.2 mg/dL (0.15-1.2) 11/12/23 12:45 AST 14 U/L (0-32) 11/12/23 12:45 ALT 21 U/L (0-33) 11/12/23 12:45 Alkaline Phosphatase 90 U/L (35-105) 11/12/23 12:45 Total Protein 7.2 g/dL (6.6-8.7) 11/12/23 12:45 Albumin 4.1 g/dL (3.5-5.2) 11/12/23 12:45 Globulin 3.1 g/dL (1.3-4.6) 11/12/23 12:45 Urine Color Yellow (Yellow) 11/12/23 11:46 Urine Appearance Clear (CLEAR) 11/12/23 11:46 Urine pH 5 (5-7) 11/12/23 11:46 Ur Specific [place] 1.010 (1.005-1.030) 11/12/23 11:46 Urine Protein Neg (Negative) 11/12/23 11:46 Urine Glucose (UA) Norm (Normal) 11/12/23 11:46 Urine Ketones Negative (Negative) 11/12/23 11:46 Urine Blood Neg (Negative) 11/12/23 11:46 Urine Nitrate Negative (Negative) 11/12/23 11:46 Urine Bilirubin Neg (Negative) 11/12/23 11:46 Urine Urobilinogen Norm mg/dL (Negative) 11/12/23 11:46 Ur Leukocyte Esterase Trace (Negative) H 11/12/23 11:46 Urine RBC None /hpf (0-2) 11/12/23 11:46 Urine WBC 5-10 /hpf (0-5) H 11/12/23 11:46 Ur Squamous Epith Cells 0-4 /hpf (0-5) H 11/12/23 11:46 Amorphous Sediment Not Reportable 11/12/23 11:46 Urine Bacteria Trace /hpf (NONE) 11/12/23 11:46 All radiology interpretation(s) finalized by discharge Discharge Plan Discharge Patient Disposition: Home Clinical Impression: Urinary tract infection Condition: Stable Prescriptions: New cefdinir 300 mg capsule 300 mg PO BID 5 Days Qty: 10 0RF cefdinir 300 mg capsule 300 mg PO BID 5 Days Qty: 10 0RF No Action lisinopril 10 mg tablet 10 mg PO DAILY trazodone 50 mg tablet 50 - 100 mg PO BEDTIME montelukast 10 mg tablet 10 mg PO DAILY azelastine-fluticasone 137-50 mcg/spray spray,non-aerosol 1 spray intranasal BID Rx Instructions: administer into each nostril Rybelsus 14 mg tablet 14 mg PO DAILY Humira Pen 40 mg/0.8 mL pen injector kit 40 mg SUBCUT Q14D Qty: 2 3RF (DME) Extra Depth Diabetic shoes with 3 sets of insoles See Rx Instructions .Route .MEDSUPPLY Qty: 1 0RF Rx Instructions: As directed (DME) Bilateral AFOs Equivalent to the AFOs she owns along with High Top Shoes See Rx Instructions .Route .MEDSUPPLY Qty: 1 0RF Rx Instructions: As directed [employer] (DME) Repair straps on bilateral AFO's See Rx Instructions .Route .MEDSUPPLY Qty: 1 0RF Rx Instructions: As directed by DON&O aspirin 325 mg Tablet 325 mg PO BEDTIME PRN (Reason: Pain) epinephrine 0.3 mg/0.3 mL auto-injector See Rx Instructions .ROUTE .COMPLEX Rx Instructions: use as directed prn fluticasone propionate 50 mcg/actuation spray,suspension 1 spray INTRANASAL BID levocetirizine 5 mg tablet 5 mg PO BEDTIME Ariel Aspirin 500 mg Tablet 1,000 mg PO Q6H PRN (Reason: UNKNOWN) leflunomide 20 mg tablet 20 mg PO DAILY Discharge Orders: Discharge ED (Routine); Ordered 11/12/23 Ordered By: Susan Maier Referrals: Remi Joaquin MD [Physician] - 4-7 days (Please follow-up with Dr. Joaquin in the next 3 to 5 days. Please call his office for an appointment) Fabby Miguel FNP [Primary Care Provider] - 4-7 days Patient Instructions: Urinary Tract Infection in Women (ED) Activity Restrictions/Additional Instructions: Thank you for choosing [facility] for your healthcare needs today. Please realize this is an emergency room and that we are providing you with a medical screening exam and this may not be complete and all inclusive of all the testing and or work up that you may need to determine your ailment or severity of your illness. You have been screened and evaluated and felt safe for discharge. Health conditions do change or evolve sometimes and as such it is important that you follow up with your Primary Doctor to be re checked, 3-5 days is a general good time frame for follow up. You are always welcome to return to the ED for re assessment if your symptoms are worsening or you have new concerns Coding Level of Care Code ED [place] [employer] for Frannie Denise
--- NOTE | 2023-11-12 12:27 | PC.NURSE ---
SEE STROKE PACKET IN CHART FOR STROKE SCALE.
[2023-11-12 12:43] VITALS: BP 147/81; PULSE 93; O2SAT 96
[2023-11-12 12:43] LABS: Bacteria Urine TRACE /hpf; Bilirubin Urine Neg (Negative); Blood Urine Neg (Negative); Glucose Urine UA Norm (Normal); Ketones Urine Negative (Negative); Leukocyte Esterase Urine Trace (Negative); Nitrate Urine Negative (Negative); Protein Urine Neg (Negative); Squamous Epithelial Cell Urine 0-4 /hpf (0-5); Urine Appearance Clear (CLEAR); Urine Color Yellow (Yellow); Urobilinogen Urine Norm (Negative); pH Urine 5 (5-7)
[2023-11-12 12:44] LABS: Add Urine Culture? No
[2023-11-12 12:54] LABS: Basophils % 0.5 %; Eosinophils # 0.1 10^3/uL (0.0-0.8); Eosinophils % 1.5 %; Lymphocytes # 2.5 10^3/uL (0.8-4.8); Lymphocytes % 28.9 %; Mean Corpuscular HGB Conc 32.9 g/dL (30-55); Mean Corpuscular Hemoglobin 28.3 pg (27-33); Mean Corpuscular Volume 86.1 fl (85-98); Mean Platelet Volume 9.8 fL (7.4-10.4); Monocytes # 0.8 10^3/uL (0.2-0.9); Monocytes % 9.6 %; Neutrophils # 5.04 10^3/uL (1.8-7.7); Nucleated Red Blood Cells % 0 %; Platelet Count 259 10^3/cmm (157-399); Red Blood Count 4.88 10^6/uL (3.85-5.65); Red Cell Distribution Width 12.7 % (12.1-15.1); White Blood Count 8.54 10^3/uL (3.29-11.43)
[2023-11-12 13:04] LABS: INR 0.93 (0.8-1.2)
[2023-11-12 13:05] LABS: Partial Thromboplastin Time 23.9 SECONDS (23.9-36.7)
[2023-11-12 13:09] LABS: Alanine Aminotransferase 21 U/L (0-33); Albumin Level 4.1 g/dL (3.5-5.2); Alkaline Phosphatase 90 U/L (35-105); Anion Gap 16.1 (5-19); Aspartate Amino Transferase 14 U/L (0-32); Blood Urea Nitrogen 16 mg/dL (8-23); Calcium 9.4 mg/dL (8.5-10.5); Carbon Dioxide 21 mmol/L (22-29); Chloride 103 mmol/L (98-107); Creatinine Clr Calc Pharmacy 61.7432; Globulin 3.1 g/dL (1.3-4.6); Glomerular Filtration Rate 83.2 mL/min (90-130); Glucose 108 mg/dL (65-115); Osmolality Calculated 284 mOsm/kg (285-295); Potassium 4.1 mmol/L (3.5-5.1); Sodium 136 mmol/L (136-145); Total Bilirubin 0.2 mg/dL (0.15-1.2); Total Protein 7.2 g/dL (6.6-8.7)
--- NOTE | 2023-11-12 13:16 | ECG_ITS ---
[facility] Test Date: 2023-11-12 Pat Name: Rahel Espinoza Department: Room: Gender: Female Behavioral Psychologist: : 1955 Requested By: Susan Wise Order Number: [id number] Jean Paul MD: Raj Hernandez M.D. Measurements Intervals [place] Rate: 65 P: 51 MN: 141 QRS: 56 QRSD: 107 T: 71 QT: 367 QTc: 382 Interpretive Statements SINUS RHYTHM WITH MARKED SINUS ARRHYTHMIA NONSPECIFIC T-WAVE ABNORMALITY Compared to ECG 09/01/2021 18:16:08 No significant changes Electronically Signed On 11-12-2023 18:07:52 CDT by Raj Hernandez M.D. [id number]
[2023-11-12] MEDS: cefTRIAXone 1,000 MG in sodium chloride 0.9% (plus) 50 ML 100 MG IV (13:22)
[2023-11-12 15:14] VITALS: PULSE 71; O2SAT 97
== END 2023-11-12 15:32 | disposition home or self-care (01) ==
PROVIDERS: Emergency Provider Emergency Medicine; PCP Nurse Practitioner Family
DX: N39.0 Urinary tract infection, site not specified (principal); E78.5 Hyperlipidemia, unspecified; I10 Essential (primary) hypertension; E11.9 Type 2 diabetes mellitus without complications; Z86.73 Personal history of transient ischemic attack (TIA), and cerebral infarction without residual deficits
CPT/HCPCS: 36415; 70450; 71045; 80053; 81001; 85025; 85610; 85730; 93005; 96365; 99285; J0696

== ENCOUNTER 2023-11-20 14:55 | Outpatient (CLI) | payer MEDICARE, SELFPAY ==
[2023-11-20 15:48] LABS: Basophils % 0.4 %; Eosinophils # 0.1 10^3/uL (0.0-0.8); Eosinophils % 1.7 %; Hematocrit 41.5 % (36-47); Lymphocytes # 2.4 10^3/uL (0.8-4.8); Lymphocytes % 31.7 %; Mean Corpuscular Hemoglobin 28.5 pg (27-33); Mean Corpuscular Volume 86.3 fl (85-98); Mean Platelet Volume 10.4 fL (7.4-10.4); Monocytes # 0.6 10^3/uL (0.2-0.9); Monocytes % 7.8 %; Neutrophils # 4.36 10^3/uL (1.8-7.7); Nucleated Red Blood Cells % 0 %; Platelet Count 279 10^3/cmm (157-399); Red Blood Count 4.81 10^6/uL (3.85-5.65); Red Cell Distribution Width 12.9 % (12.1-15.1); White Blood Count 7.53 10^3/uL (3.29-11.43)
[2023-11-20 16:37] LABS: Alanine Aminotransferase 25 U/L (0-33); Albumin Level 4.2 g/dL (3.5-5.2); Alkaline Phosphatase 101 U/L (35-105); Aspartate Amino Transferase 18 U/L (0-32); C Reactive Protein 7.9 mg/L (0.0-4.9); Globulin 3.1 g/dL (1.3-4.6); Glomerular Filtration Rate 62.3 mL/min (90-130); Total Bilirubin 0.2 mg/dL (0.15-1.2); Total Protein 7.3 g/dL (6.6-8.7)
== END 2023-11-20 14:56 | disposition home or self-care (01) ==
LOC: LAB 14:56
PROVIDERS: PCP Nurse Practitioner Family; Visit Provider Internal Medicine Rheumatology
DX: Z79.899 Other long term (current) drug therapy (principal); M05.79 Rheumatoid arthritis with rheumatoid factor of multiple sites without organ or systems involvement
CPT/HCPCS: 36415; 80076; 82565; 85025; 86140

== ENCOUNTER → 2023-11-26 13:19 | Outpatient (BNVA) | payer MEDICARE, SELFPAY | PROVIDERS: PCP Nurse Practitioner Family; Visit Provider Podiatrist Foot & Ankle Surgery | DX: M79.89 Other specified soft tissue disorders (principal); L60.0 Ingrowing nail | CPT/HCPCS: 99213 ==

== ENCOUNTER → 2023-12-06 13:43 | Outpatient (BNVA) | payer MEDICARE, SELFPAY | PROVIDERS: PCP Nurse Practitioner Family; Visit Provider Internal Medicine Rheumatology | DX: M05.79 Rheumatoid arthritis with rheumatoid factor of multiple sites without organ or systems involvement (principal); Z79.899 Other long term (current) drug therapy; Z71.85 Encounter for immunization safety counseling; R76.8 Other specified abnormal immunological findings in serum; G62.89 Other specified polyneuropathies; Z87.39 Personal history of other diseases of the musculoskeletal system and connective tissue; E11.8 Type 2 diabetes mellitus with unspecified complications; Z87.891 Personal history of nicotine dependence | CPT/HCPCS: 99214 ==

== ENCOUNTER 2023-12-13 07:15 | Outpatient (CLI) | payer MEDICARE, SELFPAY ==
--- NOTE | 2023-12-13 07:15 | MRR_ITS ---
PROCEDURE INFORMATION: Exam: MR Right Lower Extremity Other Than Joint Without and With Contrast; Foot Exam date and time: 12/13/2023 7:12 AM Age: 68 years old Clinical indication: Condition or disease; Patient HX: HX multiple infections, unable to get to normal state, pain in great toe, ? cyst/mass, ; additional info: Pre surgical planning, fore foot protocol, 2mm slices TECHNIQUE: Imaging protocol: Magnetic resonance imaging of the right lower extremity without and with contrast. Exam focused on the foot. Contrast material: MULTIHANCE; Contrast volume: 14 ml; Contrast route: INTRAVENOUS (IV); COMPARISON: CR XR foot RT min 3V* [id number] 09/13/2023 11:21 AM FINDINGS: The examination is limited by artifact. There is no MR evidence of acute fracture or dislocation. Alignment is anatomic. There is moderate osteoarthrosis of the hallux metatarsophalangeal joint, characterized by joint space narrowing, moderate grade cartilage loss and periarticular subcortical cystic change. No convincing erosive or destructive changes are seen. There is no lytic or blastic lesion. There is a small to moderate amount of loculated fluid in the hallux metatarsophalangeal joint. There is a small amount of loculated fluid in the hallux interphalangeal joint. There is mild generalized soft tissue swelling about the great toe. No convincing organized collection is identified. There is no soft tissue mass. No acute tendon or ligament injury is identified. MR/MR foot RT wo/w con [id number] IMPRESSION: Osteoarthrosis, as described above. No MR evidence of acute osteomyelitis. No organized collection or soft tissue mass.
== END 2023-12-13 07:16 | disposition home or self-care (01) ==
PROVIDERS: PCP Nurse Practitioner Family; Visit Provider Podiatrist Foot & Ankle Surgery
DX: M19.071 Primary osteoarthritis, right ankle and foot (principal); M79.89 Other specified soft tissue disorders
CPT/HCPCS: 73720; A9577

== ENCOUNTER → 2023-12-17 12:17 | Outpatient (BNVA) | payer MEDICARE, SELFPAY | PROVIDERS: PCP Nurse Practitioner Family; Visit Provider Podiatrist Foot & Ankle Surgery | DX: L60.0 Ingrowing nail (principal); M79.89 Other specified soft tissue disorders | CPT/HCPCS: 99213 ==

== ENCOUNTER → 2024-01-08 12:17 | Outpatient (BNVA) | payer MEDICARE, SELFPAY | PROVIDERS: PCP Nurse Practitioner Family; Visit Provider Podiatrist Foot & Ankle Surgery | DX: L60.0 Ingrowing nail (principal); M79.89 Other specified soft tissue disorders | CPT/HCPCS: 99213 ==

== ENCOUNTER → 2024-01-14 10:38 | Outpatient (BNVA) | payer MEDICARE, SELFPAY | PROVIDERS: PCP Nurse Practitioner Family; Visit Provider Podiatrist Foot & Ankle Surgery | DX: L60.0 Ingrowing nail (principal); M79.89 Other specified soft tissue disorders | CPT/HCPCS: 99213 ==

== ENCOUNTER → 2024-02-05 14:57 | Outpatient (BNVA) | payer MEDICARE, SELFPAY | PROVIDERS: PCP Nurse Practitioner Family; Visit Provider Podiatrist Foot & Ankle Surgery | DX: L60.0 Ingrowing nail (principal); M79.89 Other specified soft tissue disorders | CPT/HCPCS: 99213 ==

== ENCOUNTER → 2024-03-28 15:46 | Outpatient (BNVA) | payer MEDICARE, SELFPAY | PROVIDERS: PCP Nurse Practitioner Family; Visit Provider Podiatrist Foot & Ankle Surgery | DX: L60.8 Other nail disorders (principal); M79.89 Other specified soft tissue disorders | CPT/HCPCS: 99213 ==

== ENCOUNTER → 2024-04-11 12:39 | Outpatient (BNVA) | payer MEDICARE, SELFPAY | PROVIDERS: PCP Nurse Practitioner Family; Visit Provider Podiatrist Foot & Ankle Surgery | DX: L60.8 Other nail disorders (principal) | CPT/HCPCS: 99213 ==

== ENCOUNTER → 2024-04-23 10:51 | Outpatient (BNVA) | payer MEDICARE, SELFPAY | PROVIDERS: PCP Nurse Practitioner Family; Visit Provider Podiatrist Foot & Ankle Surgery | DX: L60.8 Other nail disorders (principal) | CPT/HCPCS: 99213 ==